=== PATIENT | male | born 1960 | race Caucasian/White ===

== ENCOUNTER 2019-07-19 14:24 | Outpatient (RCR) | payer MEDICAID, SELFPAY | END 2019-07-19 23:59 | disposition home or self-care (01) | LOC: ANHAUDIO 14:24 | PROVIDERS: PCP Internal Medicine; Visit Provider Internal Medicine | DX: Z46.1 Encounter for fitting and adjustment of hearing aid (principal) | CPT/HCPCS: 99199 ==

== ENCOUNTER 2020-01-23 07:08 | Outpatient (CLI) | payer OTHER, SELFPAY ==
[2020-01-23 07:22] LABS: Add Urine Microscopic? NO; Appearance Urine Clear (Clear); Bilirubin Urine Negative (Negative); Blood Urine Negative (Negative); Color Urine Yellow (Yellow); Glucose Urine UA Negative (Negative); Ketones Urine Negative (Negative); Leukocyte Esterase Ur Negative (Negative); Nitrate Urine Negative (Negative); Protein Urine Negative (Negative); Specific Grav Ur 1.015 (1.010-1.020); Urobilinogen Urine 0.2 mg/dL (0.2-1.0)
[2020-01-23 07:41] LABS: Hemoglobin A1C 5.5 % (<5.7)
[2020-01-23 08:23] LABS: Alanine Aminotransferase 34 U/L (16-63); Albumin Level 3.7 g/dL (3.4-5.0); Alkaline Phosphatase 38 U/L (46-116); Anion Gap 9.4 mmol/L (7-16); Aspartate Amino Transferase 22 U/L (15-37); Bilirubin,Total 0.9 mg/dL (0.00-1.00); Blood Urea Nitrogen 19 mg/dL (7-18); Calcium 8.8 mg/dL (8.5-10.1); Carbon Dioxide 32 mmol/L (21-32); Chloride 102 mmol/L (98-108); Cholesterol 214 mg/dL (0-200); Creatine Kinase 143 U/L (39-308); Estimated Glomerular Filt Rate > 60; Glucose 98 mg/dL (70-99); HDL Direct 76 mg/dL (40-60); LDL Cholesterol Calculated 115 mg/dL (<130); Osmolality Calculated 290 mOsm/kg (285-295); Potassium 4.4 mmol/L (3.5-5.1); Prostate Specific Antigen 1.1 ng/mL (< OR = 4.0); Sodium 139 mmol/L (136-145); Total Protein 6.7 g/dL (6.4-8.2); Triglycerides 114 mg/dL (0-150)
== END 2020-01-23 07:09 | disposition home or self-care (01) ==
PROVIDERS: PCP Internal Medicine; Visit Provider Internal Medicine
DX: R73.01 Impaired fasting glucose (principal); E78.2 Mixed hyperlipidemia; Z12.5 Encounter for screening for malignant neoplasm of prostate
CPT/HCPCS: 36415; 80053; 80061; 81003; 82550; 83036; 84153; G0103

== ENCOUNTER 2020-05-06 15:32 | Outpatient (CLI) | payer OTHER, SELFPAY ==
[2020-05-06 15:53] LABS: Basophils Absolute Auto 0.07 K/mm3 (0.00-0.10); Basophils Percent Auto 0.7 % (0.0-1.0); Eosinophils Absolute Auto 0.35 K/mm3 (0.02-0.50); Eosinophils Percent Auto 3.5 % (1.0-6.0); Hematocrit 46.3 % (40.0-54.0); Hemoglobin 15.5 g/dL (14.0-18.0); Immature Granulocyte Absolute 0.07 K/mm3 (0.00-0.00); Immature Granulocyte Percent A 0.7 % (0.0-0.0); Immature Reticulocyte Fraction 8.7 % (2.0-16.52); Lymphocytes Absolute Auto 3.24 K/mm3 (1.10-4.50); Lymphocytes Percent Auto 32.2 % (18.0-42.0); Mean Corpuscular HGB Conc 33.5 g/dL (32.0-36.0); Mean Corpuscular Volume 92.6 fL (78.0-102.0); Mean Platelet Volume 9.8 fl (8.7-11.0); Monocytes Absolute Auto 0.75 K/mm3 (0.10-0.90); Monocytes Percent Auto 7.5 % (2.0-11.0); Neutrophils Absolute Auto 5.6 K/mm3 (1.7-7.2); Neutrophils Percent Auto 55.4 % (50.0-70.0); Platelet Count Result 193 K/mm3 (150-420); Red Cell Distribution Width 12.3 % (11.6-14.4); Reticulocyte Hemoglobin Conten 36.9 pg (28.0-35.0); Reticulocyte Percent 1.89 % (0.50-1.50); Reticulocytes Absolute 0.09 M/mm3 (0.02-0.1); White Blood Count 10.1 K/mm3 (4.8-10.8)
[2020-05-06 17:08] LABS: Alanine Aminotransferase 42 U/L (16-63); Albumin Level 4.2 g/dL (3.4-5.0); Alkaline Phosphatase 47 U/L (46-116); Anion Gap 7 mmol/L (8-16); Aspartate Amino Transferase 21 U/L (15-37); Bilirubin,Total 1.1 mg/dL (0.00-1.00); Blood Urea Nitrogen 18 mg/dL (7-18); Calcium 8.8 mg/dL (8.5-10.1); Carbon Dioxide 27 mmol/L (21-32); Chloride 104 mmol/L (98-108); Estimated Glomerular Filt Rate > 60; Ferritin 167 ng/mL (26-388); Glucose 101 mg/dL (70-99); Iron 117 ug/dL (65-175); Osmolality Calculated 287 mOsm/kg (285-295); Percent Iron Saturation 41 % (12-57); Potassium 3.8 mmol/L (3.5-5.1); Sodium 138 mmol/L (136-145); Total Protein 7.4 g/dL (6.4-8.2)
== END 2020-05-06 15:33 | disposition home or self-care (01) ==
LOC: CHSLAB 15:34
PROVIDERS: PCP Internal Medicine; Visit Provider Internal Medicine
DX: R19.7 Diarrhea, unspecified (principal); K92.1 Melena
CPT/HCPCS: 36415; 80053; 82728; 83540; 83550; 85025; 85046

== ENCOUNTER 2020-05-07 15:33 | Outpatient (CLI) | payer OTHER, SELFPAY ==
[2020-05-10 12:33] LABS: Gliadin AB, IgG 5 Units (<20); Reticulin IgA Negative (Negative); TTG IGA AB 1 U/mL (<4)
[2020-05-12 07:23] LABS: ANCA Screen Negative (Negative); Myeloperoxidase Ab <1.0 AI (<1.0); Proteinase-3 Ab <1.0 AI (<1.0); S cerevisiae Ab (IgA) 33.5 U (<=20.0); S cerevisiae Ab (IgG) 17.5 U (<=20.0)
== END 2020-05-07 15:34 | disposition home or self-care (01) ==
LOC: CHSLAB 15:34
PROVIDERS: PCP Internal Medicine; Visit Provider Internal Medicine
DX: R19.7 Diarrhea, unspecified (principal); K92.1 Melena
CPT/HCPCS: 36415; 83516; 86021; 86255; 86671; 87045; 87046; 87177; 87209; 87269; 87337; 87427

== ENCOUNTER 2020-05-16 07:58 | Outpatient (CLI) | payer OTHER, SELFPAY ==
--- NOTE | ~2020-05-16 | US_ITS ---
EXAMINATION: US right upper quadrant DATE: 05/16/2020 08:19 INDICATION: Nausea. Bloating. TECHNIQUE: Multiple grayscale and Doppler ultrasound images of the abdomen were obtained. COMPARISON: CT abdomen and pelvis 06/02/2012 FINDINGS: The visualized portions of the head and body of the pancreas are normal. The liver is chung l without focal lesion. There is normal flow in main portal vein. The gallbladder is normal in size. No gallstones or gallbladder wall thickening. There was no sonographic Crenshaw sign. The common duct i s normal and measures 4 mm. IMPRESSION: 1. Normal right upper quadrant ultrasound. Reviewed, dictated and finalized at location B.
== END 2020-05-16 07:59 | disposition home or self-care (01) ==
LOC: CHSIMG 07:59
PROVIDERS: PCP Internal Medicine; Visit Provider Internal Medicine
DX: R19.7 Diarrhea, unspecified (principal); R14.0 Abdominal distension (gaseous); R11.0 Nausea
CPT/HCPCS: 76705

== ENCOUNTER 2020-06-10 01:00 | Outpatient (CLI) | payer OTHER, SELFPAY ==
[2020-06-10 20:51] LABS: SARS-CoV-2 RNA PCR Negative
== END 2020-06-10 01:01 | disposition home or self-care (01) ==
LOC: ANHCOVIDDT 01:01
PROVIDERS: PCP Internal Medicine; Visit Provider Surgery
DX: Z01.812 Encounter for preprocedural laboratory examination (principal); Z20.828 Contact with and (suspected) exposure to other viral communicable diseases
CPT/HCPCS: 87635; C9803; U0003

== ENCOUNTER 2020-06-12 01:06 | Day surgery (SDC) | payer OTHER, SELFPAY ==
[2020-06-05 12:56] VITALS: BMI 27.6
--- NOTE | 2020-06-11 12:20 | WPDANESEPPF ---
Anes - Initial Pre Proc Eval Procedure: Operation Date: 06/12/20 07:30 Proposed Procedures p Colonoscopy - Carl Estrada DO Date/Time: 06/11/20 12:20 Surgeon: Carl Estrada DO Pre Op Diagnosis: Abdominal Pain Patient Data Age: 59 Gender: M Height: 1.7 m Weight: 80 kg Allergies Allergy/AdvReac Type Severity Reaction Status Date / Time Penicillins Allergy Unknown Rash Verified 06/12/20 06:16 Home Medications Medication Instructions Recorded Confirmed Type albuterol sulfate [ProAir HFA] 1 inh INHALATION Q4-6H PRN 06/05/20 06/05/20 History montelukast 10 mg PO DAILY 06/05/20 06/05/20 History pantoprazole 40 mg PO DAILY 06/05/20 06/05/20 History pravastatin 40 mg PO DAILY 06/05/20 06/05/20 History Patient hx anesthesia problems: none Family hx anesthesia problems: none PMFSH Past Medical History Medical History (Updated 06/11/20 @ 12:21 by Antonio Chadwick MD) Asthma Chronic GERD Hypercholesterolemia Overweight (BMI 25.0-29.9) Family History Family History (Updated 11/05/16 @ 09:40 by DOCTOR UNKNOWN) Father Family history of malignant neoplasm Other Family history of alcoholism Family history of arthritis Hypertension Social History Social History Smoking packs per day: 2 Smoking cigarettes per day: 40.0 Years smoked: 32 Smoking pack-years: 64.00 Smoking status: Former smoker Tobacco type: cigarettes Smoking end date: 08/08/06 Alcohol intake: current Substance use: never Substance use type: does not use Living arrangements: with family Spiritual care concerns: No Anes - Eval Final PreProcedure Day of Procedure 06/11/20 12:20 Patient weight: overweight Heart: regular rate and rhythm Lungs: clear to auscultation and normal air movement Airway: Mallampati scale class II Neurological: alert and oriented Last oral intake: >/= 8 hours ASA classification: II Emergent: no Anesthetic plan: proceed Anesthesia type and monitoring: general GIVS Informed Consent: The patient's anesthetic plan and its attendant risks and benefits were discussed with the patient/family/POA. Questions were solicited and answers provided to the satisfaction of the patient/family/POA.
[2020-06-12 06:17] VITALS: BP 131/78; PULSE 74; RESP 18; TEMP 36; O2SAT 95; BMI 26.7
[2020-06-12] MEDS: LACTATED RINGERS 1,000 ML 150 ML IV CONT (06:26)
--- NOTE | 2020-06-12 07:30 | PM.IMHP ---
H&P: HPI History of Present Illness Date/Time: 06/12/20 07:30 Chief complaint: Abdominal Pain Narrative: Vidal Donovan is a 59 year old male who presents for colonoscopy. He was having some abdominal pain and diarrhea, but he figured that that was somewhat diet related. He also had some occasional rectal bleeding. Last colonoscopy was 8 years ago and was normal. Denies fam hx colon cancer. Review of Systems Review of Systems: All systems reviewed & are unremarkable except as noted in HPI and below Eyes: Eyes: Denies change in vision ENT: Denies hearing loss, Denies neck pain and Denies sore throat Cardiovascular: Cardiovascular: Denies chest pain and Denies dyspnea Respiratory: Respiratory: Denies cough, Denies dyspnea and Denies wheezing Genitourinary: Genitourinary: Denies hematuria and Denies dysuria Musculoskeletal: Musculoskeletal: Denies arthralgias, Denies joint swelling and Denies neck pain Allergic/Immunologic: Allergic/Immunologic: Denies wheezing PMFSH Past Medical History Medical History Asthma Chronic GERD Hypercholesterolemia Overweight (BMI 25.0-29.9) Family History Family History Father Family history of malignant neoplasm Other Family history of alcoholism Family history of arthritis Hypertension Social History Social History Smoking packs per day: 2 Smoking cigarettes per day: 40.0 Years smoked: 32 Smoking pack-years: 64.00 Smoking status: Former smoker Tobacco type: cigarettes Smoking end date: 08/08/06 Alcohol intake: current Substance use: never Substance use type: does not use Living arrangements: with family Spiritual care concerns: No Meds Home Medications and Allergies Home Medications Medication Instructions Recorded Confirmed Type albuterol sulfate [ProAir HFA] 1 inh INHALATION Q4-6H PRN 06/05/20 06/05/20 History montelukast 10 mg PO DAILY 06/05/20 06/05/20 History pantoprazole 40 mg PO DAILY 06/05/20 06/05/20 History pravastatin 40 mg PO DAILY 06/05/20 06/05/20 History Allergies Allergy/AdvReac Type Severity Reaction Status Date / Time Penicillins Allergy Unknown Rash Verified 06/12/20 06:16 Vital Signs Vital Signs - 24 hr 06/12/20 06:17 Temperature 36.0 C L Pulse Rate 74 Respiratory Rate 18 Blood Pressure 131/78 Pulse Oximetry 95 Exam Const: General: alert; No acute distress Orientation/consciousness: patient oriented x3 Limitations: no limitations HENMT: Head: normocephalic and atraumatic Ears: hearing grossly normal bilaterally General nose exam: Normal external nose present and Normal nares present Mouth: Yes Normal oral and palatal mucosa present and Yes moist mucous membranes Eyes: General: appearance normal, both eyes and all related structures Conjunctivae: conjunctivae normal Sclera: sclerae normal Pupils: Equal, round and reactive pupils present EOM: EOMs intact bilaterally Neck: Neck: normal visual inspection, full ROM, no lymphadenopathy, supple and no JVD Lymphatic: no lymphadenopathy noted Chest: Chest palpation & inspection: normal inspection of the chest Resp: Effort & Inspection: normal respiratory effort and able to speak in complete sentences Auscultation: clear to auscultation bilaterally Percussion: percussion normal Cardio: Jugular venous distension: no JVD Rate: regular rate Rhythm: regular rhythm Heart sounds: S1 normal heart sound present and S2 normal heart sound present Peripheral pulses: Peripheral pulses 2+ throughout GI: Inspection: normal to inspection GI Palp: No abdominal tenderness, Yes Soft to palpation, No Guarding due to palpation present (GI), No Hernia present and No Rebound tenderness present Percussion: Yes normal to percussion Auscultation: normal bowel sounds : General: Yes no CVA ten
[2020-06-12 07:58] VITALS: BP 117/79; PULSE 75; RESP 18; O2SAT 97
[2020-06-12 08:08] VITALS: BP 126/83; PULSE 69; RESP 18; O2SAT 97
[2020-06-12 08:18] VITALS: BP 128/73; PULSE 69; RESP 18; O2SAT 97
== END 2020-06-12 08:35 | disposition home or self-care (01) ==
PROVIDERS: PCP Internal Medicine; Visit Provider Surgery
PROC: 0DJD8ZZ Inspection of Lower Intestinal Tract, Via Natural or Artificial Opening Endoscopic (ICD-10-PCS; CPT 45378; principal; 2020-06-12 07:30)
DX: R10.84 Generalized abdominal pain (principal); K62.5 Hemorrhage of anus and rectum; K64.8 Other hemorrhoids; J45.909 Unspecified asthma, uncomplicated; K21.9 Gastro-esophageal reflux disease without esophagitis; E78.00 Pure hypercholesterolemia, unspecified; Z87.891 Personal history of nicotine dependence
CPT/HCPCS: 45378; J2704; J7120

== ENCOUNTER 2020-07-09 13:47 | Outpatient (CLI) | payer OTHER, SELFPAY ==
[2020-07-09 14:43] LABS: SARS-CoV-2 Ag Positive (Negative)
== END 2020-07-09 13:48 | disposition home or self-care (01) ==
LOC: CHSLAB 13:50
PROVIDERS: PCP Internal Medicine; Visit Provider Internal Medicine
DX: U07.1 COVID-19 (principal)
CPT/HCPCS: 87426

== ENCOUNTER 2020-07-16 13:56 | Outpatient (CLI) | payer OTHER, SELFPAY ==
--- NOTE | ~2020-07-16 | XR_ITS ---
EXAMINATION: XR chest 2V DATE: 07/16/2020 14:22 INDICATION: Cough. Chest congestion. TECHNIQUE: Frontal and lateral views of the chest were obtained. COMPARISON: Chest 2 views 07/02/2016 FINDINGS: The chest demonstrates clear lungs without pneumonia, pleural effusion, or pneumothorax. Th e heart size is normal. IMPRESSION: 1. No acute cardiopulmonary disease. Reviewed, dictated and finalized at location B. K OFFBEARER
[2020-07-16 14:56] LABS: Basophils Absolute Auto 0.04 K/mm3 (0.00-0.10); Basophils Percent Auto 0.5 % (0.0-1.0); Eosinophils Absolute Auto 0.33 K/mm3 (0.02-0.50); Eosinophils Percent Auto 3.8 % (1.0-6.0); Hematocrit 46.7 % (40.0-54.0); Hemoglobin 15.6 g/dL (14.0-18.0); Immature Granulocyte Absolute 0.05 K/mm3 (0.00-0.00); Immature Granulocyte Percent A 0.6 % (0.0-0.0); Lymphocytes Absolute Auto 3.13 K/mm3 (1.10-4.50); Lymphocytes Percent Auto 36.1 % (18.0-42.0); Mean Corpuscular HGB Conc 33.4 g/dL (32.0-36.0); Mean Corpuscular Hemoglobin 30.6 pg (27.0-31.0); Mean Corpuscular Volume 91.7 fL (78.0-102.0); Mean Platelet Volume 10.5 fl (8.7-11.0); Monocytes Absolute Auto 0.53 K/mm3 (0.10-0.90); Monocytes Percent Auto 6.1 % (2.0-11.0); Neutrophils Absolute Auto 4.6 K/mm3 (1.7-7.2); Neutrophils Percent Auto 52.9 % (50.0-70.0); Platelet Count Result 178 K/mm3 (150-420); Red Blood Count 5.09 M/mm3 (4.70-6.10); Red Cell Distribution Width 12.3 % (11.6-14.4); White Blood Count 8.7 K/mm3 (4.8-10.8)
== END 2020-07-16 13:57 | disposition home or self-care (01) ==
LOC: CHSLAB 14:00
PROVIDERS: PCP Internal Medicine; Visit Provider Internal Medicine
DX: R05 Cough (principal); R09.89 Other specified symptoms and signs involving the circulatory and respiratory systems
CPT/HCPCS: 36415; 71046; 85025

== ENCOUNTER 2020-08-22 13:03 | Outpatient (RCR) | payer OTHER, SELFPAY ==
--- NOTE | 2020-08-22 14:10 | PTOPEVAL ---
Thank you for referring Vidal Donovan to [facility].? The patient is scheduled to be seen for therapy? ____x/week for ___ weeks. Please review, sign, date and return this plan of care CHANDRIKA. I agree with and certify that the following plan of care is medically necessary. Referring Physician Date Admitting Provider: Attending Provider: Charlie Gloria MD Referring Provider: *PT Outpatient Evaluation Start: 08/22/20 13:03 Freq: Status: Active Protocol: Document 08/22/20 13:05 [facility] (Rec: 08/22/20 14:04 [facility] [id number]) Therapy Assessment Status Assessment Status Assessment Status Evaluation Outpatient Past Medical History Neurological History Hx Neurological Disorders No Significant History Cardiovascular History Hx Hypercholesterolemia Yes Respiratory History Hx Asthma Yes Gastrointestinal History Hx Appendectomy Yes Hx Gastroesophageal Reflux Disease Yes Hx Hernia Yes Genitourinary History Hx Genitourinary Disorders No Significant History Musculoskeletal History Hx Orthopedic Surgery Yes: right knee and right shoulder- no metal Hematological History Hx Hematological Disorders No Significant History Endocrine History Hx Endocrine Disorders No Significant History HEENT History Hx HEENT Disorders No Significant History Integumentary History Hx Skin Disorders No Significant History Reproductive History Hx Reproductive Disorders No Significant History Psychosocial History Hx Psychiatric Disorders No Significant History Evaluation Information Problem Diagnosis s/p L PTKA Onset 08/19/20 Additional Evaluation Detail LEFS = 77% Subjective Information patient reports he underwent Query Text:As Reported By Patient/ partial total knee replacement Family on 08/19/20. however, patients order refers him to therapy for total knee replacement. patient reports he is unsure which component of knee reaplacement he had replaced. he reports the joint was arthritic and painful prior to surgery. he reports he was in the hospital 1 night . he reports no home health. he reports he has been doing bed level exercises for his L knee since her has been home. Prior Level of Function Comments Additional Prior Level of Function prior to surgery, patient Comments reports
== END 2020-09-30 10:34 | disposition home or self-care (01) ==
LOC: CHSPT 13:03
PROVIDERS: PCP Internal Medicine; Visit Provider Orthopaedic Surgery
DX: Z96.652 Presence of left artificial knee joint (principal)
CPT/HCPCS: 97016; 97110; 97161; 97530

== ENCOUNTER 2020-12-26 11:16 | Outpatient (CLI) | payer OTHER, SELFPAY ==
[2020-12-26 11:24] LABS: Basophils Absolute Auto 0.09 K/mm3 (0.00-0.10); Basophils Percent Auto 0.9 % (0.0-1.0); Eosinophils Percent Auto 4.1 % (1.0-6.0); Hematocrit 46.8 % (40.0-54.0); Hemoglobin 15.8 g/dL (14.0-18.0); Immature Granulocyte Absolute 0.03 K/mm3 (0.00-0.00); Immature Granulocyte Percent A 0.3 % (0.0-0.0); Lymphocytes Absolute Auto 3.51 K/mm3 (1.10-4.50); Lymphocytes Percent Auto 36.1 % (18.0-42.0); Mean Corpuscular HGB Conc 33.8 g/dL (32.0-36.0); Mean Corpuscular Hemoglobin 30.6 pg (27.0-31.0); Mean Corpuscular Volume 90.5 fL (78.0-102.0); Mean Platelet Volume 9.8 fl (8.7-11.0); Monocytes Absolute Auto 0.79 K/mm3 (0.10-0.90); Monocytes Percent Auto 8.1 % (2.0-11.0); Neutrophils Absolute Auto 4.9 K/mm3 (1.7-7.2); Neutrophils Percent Auto 50.5 % (50.0-70.0); Platelet Count Result 200 K/mm3 (150-420); Red Blood Count 5.17 M/mm3 (4.70-6.10); Red Cell Distribution Width 12.5 % (11.6-14.4); White Blood Count 9.7 K/mm3 (4.8-10.8)
[2020-12-26 12:17] LABS: Anion Gap 9 mmol/L (8-16); Aspartate Amino Transferase 19 U/L (15-37); Blood Urea Nitrogen 28 mg/dL (7-18); Calcium 9.5 mg/dL (8.5-10.1); Carbon Dioxide 27 mmol/L (21-32); Chloride 103 mmol/L (98-108); Estimated Glomerular Filt Rate > 60; Glucose 101 mg/dL (70-99); Osmolality Calculated 293 mOsm/kg (285-295); Potassium 4.4 mmol/L (3.5-5.1); Sodium 139 mmol/L (136-145)
== END 2020-12-26 11:17 | disposition home or self-care (01) ==
LOC: CHSLAB 11:17
PROVIDERS: PCP Internal Medicine; Visit Provider Orthopaedic Surgery
DX: Z79.1 Long term (current) use of non-steroidal anti-inflammatories (NSAID) (principal)
CPT/HCPCS: 36415; 80048; 84450; 85025

== ENCOUNTER 2020-12-30 13:58 | Outpatient (RCR) | payer OTHER, SELFPAY | END 2020-12-30 23:59 | disposition home or self-care (01) | LOC: ANHAUDIO 13:58 | PROVIDERS: PCP Internal Medicine; Visit Provider Internal Medicine | DX: Z46.1 Encounter for fitting and adjustment of hearing aid (principal) | CPT/HCPCS: 99199; V5014 ==

== ENCOUNTER 2021-07-10 10:51 | Outpatient (RCR) | payer OTHER, SELFPAY ==
--- NOTE | 2021-07-10 12:05 | PTOPEVAL ---
Thank you for referring Vidal Donovan to [facility].? The patient is scheduled to be seen for therapy? ____x/week for ___ weeks. Please review, sign, date and return this plan of care CHANDRIKA. I agree with and certify that the following plan of care is medically necessary. Referring Physician Date Admitting Provider: Attending Provider: Charlie Gloria MD Referring Provider: *PT Outpatient Evaluation Start: 07/10/21 11:13 Freq: Status: Active Protocol: Document 07/10/21 11:10 [facility] (Rec: 07/10/21 12:05 [facility] [id number]) Therapy Assessment Status Assessment Status Assessment Status Evaluation Outpatient Past Medical History Neurological History Hx Neurological Disorders No Significant History Cardiovascular History Hx Hypercholesterolemia Yes Respiratory History Hx Asthma Yes Gastrointestinal History Hx Appendectomy Yes Hx Gastroesophageal Reflux Disease Yes Hx Hernia Yes Genitourinary History Hx Genitourinary Disorders No Significant History Musculoskeletal History Hx Orthopedic Surgery Yes: right knee and right shoulder- no metal Hematological History Hx Hematological Disorders No Significant History Endocrine History Hx Endocrine Disorders No Significant History HEENT History Hx HEENT Disorders No Significant History Integumentary History Hx Skin Disorders No Significant History Reproductive History Hx Reproductive Disorders No Significant History Psychosocial History Hx Psychiatric Disorders No Significant History Evaluation Information Problem Diagnosis R medial partial knee replacement Onset 07/07/21 Additional Evaluation Detail LEFS = 68% functionally declined Subjective Information patient reports he has R Query Text:As Reported By Patient/ partial knee reaplcement of Family the medial compartment on . he reports he has having pain still and discomfort with trying to sleep the past few days. he reports prior to surgery he was having a lot of difficutly with walking. he reports his hip on the opposite side was beginning to bother him as well. he has had the same surgery on the L knee and done well with return to pain free mobility on the L LE. Prior Level of Function Comments
--- NOTE | 2021-08-04 17:33 | PTOPEVAL ---
Thank you for referring Vidal Donovan to [facility].? The patient is scheduled to be seen for therapy? ____x/week for ___ weeks. Please review, sign, date and return this plan of care CHANDRIKA. I agree with and certify that the following plan of care is medically necessary. Referring Physician Date Admitting Provider: Attending Provider: Charlie Gloria MD Referring Provider: *PT Outpatient Evaluation Start: 07/10/21 11:13 Freq: Status: Active Protocol: Document 08/04/21 09:00 [facility] (Rec: 08/04/21 17:32 [facility] [id number]) Therapy Assessment Status Assessment Status Assessment Status Progress Outpatient Past Medical History Neurological History Hx Neurological Disorders No Significant History Cardiovascular History Hx Hypercholesterolemia Yes Respiratory History Hx Asthma Yes Gastrointestinal History Hx Appendectomy Yes Hx Gastroesophageal Reflux Disease Yes Hx Hernia Yes Genitourinary History Hx Genitourinary Disorders No Significant History Musculoskeletal History Hx Orthopedic Surgery Yes: right knee and right shoulder- no metal Hematological History Hx Hematological Disorders No Significant History Endocrine History Hx Endocrine Disorders No Significant History HEENT History Hx HEENT Disorders No Significant History Integumentary History Hx Skin Disorders No Significant History Reproductive History Hx Reproductive Disorders No Significant History Psychosocial History Hx Psychiatric Disorders No Significant History Evaluation Information Problem Diagnosis R medial partial knee replacement Onset 07/07/21 Subjective Information patient reports he feels good Query Text:As Reported By Patient/ this date. he reports Family minimal pain in the R knee today. he reports the MD was happy with his progress as of his follow up visit yesterday. Pain Assessment Timing of Pain Assessment Timing of Pain Assessment Assessment Pain Scale Pain Scale Used Numeric (1 - 10) Self Report Pain Assessment Right Knee(s) Reported Pain Level 2 Pain Score Pain Score 2: Self Report Interventions Used Interventions Used By Clinicians Activity or ADL's,Compression Pump,Elevation,Exercise Lower Extremity Range of Motion General Lower Extremity Range of Motion Gross Lower Extremity Range of Motion 0-13 degrees arom R knee Comments mobility Gait Assessment 6 Minute Walk Total Distance (feet) 1,200 6 Minute Walk Gait Speed Score (feet/ 3.33 second)
--- NOTE | 2021-08-18 10:00 | PTOPEVAL ---
Thank you for referring Vidal Donovan to [facility].? The patient is scheduled to be seen for therapy? ____x/week for ___ weeks. Please review, sign, date and return this plan of care CHANDRIKA. I agree with and certify that the following plan of care is medically necessary. Referring Physician Date Admitting Provider: Attending Provider: Charlie Gloria MD Referring Provider: *PT Outpatient Evaluation Start: 07/10/21 11:13 Freq: Status: Active Protocol: Document 08/18/21 09:00 [facility] (Rec: 08/18/21 09:58 [facility] [id number]) Outpatient Past Medical History Neurological History Hx Neurological Disorders No Significant History Cardiovascular History Hx Hypercholesterolemia Yes Respiratory History Hx Asthma Yes Gastrointestinal History Hx Appendectomy Yes Hx Gastroesophageal Reflux Disease Yes Hx Hernia Yes Genitourinary History Hx Genitourinary Disorders No Significant History Musculoskeletal History Hx Orthopedic Surgery Yes: right knee and right shoulder- no metal Hematological History Hx Hematological Disorders No Significant History Endocrine History Hx Endocrine Disorders No Significant History HEENT History Hx HEENT Disorders No Significant History Integumentary History Hx Skin Disorders No Significant History Reproductive History Hx Reproductive Disorders No Significant History Psychosocial History Hx Psychiatric Disorders No Significant History Evaluation Information Problem Diagnosis R medial partial knee replacement Onset 07/07/21 Additional Evaluation Detail LEFS = 26% functionally declined. Subjective Information patient reports he has no pain Query Text:As Reported By Patient/ this date. he reports he sees Family the MD today to follow up about a small iritation on the incision. 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 he reports he did push it hard over the weekend walking on a treadmill and the knee felt great. Pain Assessment Timing of Pain Assessment Timing of Pain Assessment Assessment Self Report Self Report Pain Level 0 Pain Score Pain Score 0: Self Report Lower Extremity Range of Motion General Lower Extremity Range of Motion Gross Lower Extremity Range of Motion 0-130 degrees arom R knee Comments mobility Lower Extremity Muscle Strength Testing General Lower Extremity Strength Gross Lower Extremity Strength 5/5 R hip
== END 2021-08-18 14:09 | disposition home or self-care (01) ==
LOC: CHSPT 10:51
PROVIDERS: Visit Provider Orthopaedic Surgery
DX: Z96.651 Presence of right artificial knee joint (principal)
CPT/HCPCS: 97016; 97110; 97161; 97530

== ENCOUNTER 2021-08-17 08:55 | Outpatient (CLI) | payer OTHER, SELFPAY | END 2021-08-17 08:56 | disposition home or self-care (01) | LOC: ANHAUDIO 08:57 | PROVIDERS: PCP Internal Medicine; Visit Provider Otolaryngology | DX: H69.83 Other specified disorders of Eustachian tube, bilateral (principal); H90.3 Sensorineural hearing loss, bilateral | CPT/HCPCS: 92557; 92567 ==

== ENCOUNTER 2021-09-16 11:47 | Outpatient (CLI) | payer OTHER, SELFPAY ==
--- NOTE | ~2021-09-16 | XR_ITS ---
XR lumbar spine 2-3V DATE: 09/16/2021 12:08 INDICATION: Low back pain, left sciatica TECHNIQUE: AP, lateral, coned lateral lumbosacral views COMPARISON: 05/22/2012 lumbar spine examination is not available from the archive at this time FINDINGS: There is mild lumbar levoscoliosis. Included lower thoracic and lumbar pedicles are intact. No fracture or bone destruction is evident. There is degenerative spurring in the lower thoracic spine. There is moderate degenerative disc disease at L1-2. There is severe degenerative disc disease at L2-3 with virtual obliteration of interspace and promine nt apposing eburnation and some degenerative spurring. There is minimal retrolisthesis at L3-4 and L4-5. There is severe degenerative disease at L5-S1. There are bilateral L5 pars interarticularis defects with grade 2 anterolisthesis at L5-S1. The sacroiliac joints are intact. IMPRESSION: Bilateral L5 pars interarticularis defects with grade 2 anterolisthesis of L5-S1 Severe degenerative disc disease at L2-3 and L5-S1 Minimal retrolisthesis at L3-4 and L4-5 Reviewed, dictated and finalized at location A. ALT PAVING FOREMAN IMPRESSION: Bilateral L5 pars interarticularis defects with grade 2 anterolisth esis of L5-S1 Severe degenerative disc disease at L2-3 and L5-S1 Minimal retrolisthesis at L3-4 and L4-5
--- NOTE | ~2021-09-16 | XR_ITS ---
XR sacroiliac joints min 3V DATE: 09/16/2021 12:08 INDICATION: Low back pain, left sciatica TECHNIQUE: AP and bilateral oblique views COMPARISON: None FINDINGS: Normal alignment at the pubic symphysis and both sacroiliac joints. No fracture, dislocatio n, erosive change, ankylosis or degenerative change of the sacroiliac joints is evident. IMPRESSION: Negative sacroiliac joints Reviewed, dictated and finalized at Location A. Reviewed, dictated and finalized at location A. OGRAPHIC PHOTOGRAPHER IMPRESSION: Negative sacroiliac joints
== END 2021-09-16 11:48 | disposition home or self-care (01) ==
LOC: CHSIMG 11:48
PROVIDERS: PCP Internal Medicine; Visit Provider Internal Medicine
DX: M54.50 Low back pain, unspecified (principal)
CPT/HCPCS: 72100; 72202

== ENCOUNTER 2021-09-19 07:19 | Outpatient (CLI) | payer OTHER, SELFPAY ==
--- NOTE | ~2021-09-19 | MR_ITS ---
EXAMINATION: MR lumbar spine wo con DATE: 09/19/2021 08:21 INDICATION: Low back pain. TECHNIQUE: Magnetic resonance imaging (MRI) of the lumbar spine was performed without intravenous con trast. Sequences included sagittal T2-weighted FSE, sagittal T2-weighted FS FSE, sagittal T1-weighted FSE, and axial T2-weighted FSE. COMPARISON: Lumbar spine MRI 05/24/2012 FINDINGS: There is 8 degrees levocurvature of lumbar spine. There are chronic bilateral L5 pars defec ts. There is 4 mm retrolisthesis of L2 on L3 and 5 mm anterolisthesis of L5 on S1. There is less than 1/5 chronic height loss of L5 vertebral body posteriorly. There is mildly decreased disc height at L 1-L2, severely decreased disc height at L2-L3, mildly decreased disc height at L4-L5, and severely de creased disc height at L5-S1 with endplate remodeling. The distal spinal cord signal intensity is nor mal. The conus medullaris is at L1. The following disc levels are specifically discussed: L1-L2: The disc is bulging and has an annular fissure. There is mild bilateral facet joint osteoarthr itis. There is mild left neural foraminal stenosis. There is mild central canal stenosis. L2-L3: The disc is bulging and has an annular fissure. There is moderate right and mild left facet jamal int osteoarthritis. There is moderate right and mild left neural foraminal stenosis. There is mild ce ntral canal stenosis. L3-L4: The disc is bulging and has an annular fissure. There is mild bilateral facet joint osteoarthr itis. There is mild bilateral neural foraminal stenosis. There is no central canal stenosis. L4-L5: The disc is bulging and has an annular fissure. There is severe bilateral facet joint osteoart hritis. There is moderate bilateral neural foraminal stenosis. There is mild central canal stenosis. L5-S1: The disc is bulging and has an annular fissure. There is severe bilateral facet joint osteoart hritis. There is moderate bilateral neural foraminal stenosis. There is mild central canal stenosis. IMPRESSION: 1. Severe lumbar spondylosis, worsened from 05/24/2012. 2. Chronic bilateral L5 pars defects with grade 1 anterolisthesis of L5 on S1. Reviewed, dictated and finalized at location E. YSIS OR RESEARCH SAFETY INSPECTOR
== END 2021-09-19 07:20 | disposition home or self-care (01) ==
LOC: CHSIMG 07:20
PROVIDERS: PCP Internal Medicine; Visit Provider Internal Medicine
DX: M54.50 Low back pain, unspecified (principal); M51.36 Other intervertebral disc degeneration, lumbar region
CPT/HCPCS: 72148

== ENCOUNTER 2021-09-29 14:08 | Outpatient (RCR) | payer OTHER, SELFPAY ==
--- NOTE | 2021-09-29 14:55 | PTOPEVAL ---
Thank you for referring Vidal Donovan to [facility].? The patient is scheduled to be seen for therapy? ____x/week for ___ weeks. Please review, sign, date and return this plan of care CHANDRIKA. I agree with and certify that the following plan of care is medically necessary. Referring Physician Date Admitting Provider: Attending Provider: Rk Swenson MD Referring Provider: *PT Outpatient Evaluation Start: 09/29/21 14:03 Freq: Status: Active Protocol: Document 09/29/21 14:04 [facility] (Rec: 09/29/21 14:53 [facility] [id number]) Therapy Assessment Status Assessment Status Assessment Status Evaluation Outpatient Past Medical History Neurological History Hx Neurological Disorders No Significant History Cardiovascular History Hx Hypercholesterolemia Yes Respiratory History Hx Asthma Yes Gastrointestinal History Hx Appendectomy Yes Hx Gastroesophageal Reflux Disease Yes Hx Hernia Yes Genitourinary History Hx Genitourinary Disorders No Significant History Musculoskeletal History Hx Orthopedic Surgery Yes: right knee and right shoulder- no metal Hematological History Hx Hematological Disorders No Significant History Endocrine History Hx Endocrine Disorders No Significant History HEENT History Hx HEENT Disorders No Significant History Integumentary History Hx Skin Disorders No Significant History Reproductive History Hx Reproductive Disorders No Significant History Psychosocial History Hx Psychiatric Disorders No Significant History Evaluation Information Problem Diagnosis DDD, L5/S1 radiculopathy Onset 09/24/21 Additional Evaluation Detail oswestry = 58% functionally declined Subjective Information patient reports he is having Query Text:As Reported By Patient/ pain in the lower back and Family down the L LE. he reports the L LE symptoms are along the side of the L LE past the knee into the foot. he reports he has had pain in the lower back for years. patient reports he has increased pain with sitting or standing still for more than 10 minutes. he reports he feel svery stiff when getting back up from sitting. he reports he is better when he is up and moving constantly. he reports he has had mri and xray of
--- NOTE | 2021-10-30 14:02 | PTOPEVAL ---
Thank you for referring Vidal Donovan to [facility].? The patient is scheduled to be seen for therapy? ____x/week for ___ weeks. Please review, sign, date and return this plan of care CHANDRIKA. I agree with and certify that the following plan of care is medically necessary. Referring Physician Date Admitting Provider: Attending Provider: Rk Swenson MD Referring Provider: *PT Outpatient Evaluation Start: 09/29/21 14:03 Freq: Status: Active Protocol: Document 10/30/21 13:00 [facility] (Rec: 10/30/21 14:02 [facility] [id number]) Outpatient Past Medical History Neurological History Hx Neurological Disorders No Significant History Cardiovascular History Hx Hypercholesterolemia Yes Respiratory History Hx Asthma Yes Gastrointestinal History Hx Appendectomy Yes Hx Gastroesophageal Reflux Disease Yes Hx Hernia Yes Genitourinary History Hx Genitourinary Disorders No Significant History Musculoskeletal History Hx Orthopedic Surgery Yes: right knee and right shoulder- no metal Hematological History Hx Hematological Disorders No Significant History Endocrine History Hx Endocrine Disorders No Significant History HEENT History Hx HEENT Disorders No Significant History Integumentary History Hx Skin Disorders No Significant History Reproductive History Hx Reproductive Disorders No Significant History Psychosocial History Hx Psychiatric Disorders No Significant History Evaluation Information Problem Diagnosis DDD, L5/S1 radiculopathy Onset 09/24/21 Additional Evaluation Detail LEFS = 24% functionally declined Subjective Information patient reports he is doing Query Text:As Reported By Patient/ better since beginning Family therapy. he reports he still has some pain and pain in the L buttock with prolonged sitting. however, he reports he is able to sit longer, stand longer, has less pain overall, and has no symptoms down the L LE. he reports he is compliant with his HEP at home. Pain Assessment Timing of Pain Assessment Timing of Pain Assessment Assessment Pain Scale Pain Scale Used Numeric (1 - 10) Self Report Pain Assessment Lower Back Reported Pain Level 2 Pain Score Pain Score 2: Self Report Interventions Used Interventions Used By Clinicians Activity or ADL's,Education, Exerc
== END 2021-10-30 14:17 | disposition home or self-care (01) ==
LOC: CHSPT 14:08
PROVIDERS: PCP Internal Medicine; Visit Provider Internal Medicine
DX: M19.90 Unspecified osteoarthritis, unspecified site (principal); M43.07 Spondylolysis, lumbosacral region
CPT/HCPCS: 97014; 97110; 97161; 97530; G0283

== ENCOUNTER 2021-10-16 09:54 | Outpatient (RCR) | payer OTHER, SELFPAY | END 2021-10-16 23:59 | disposition home or self-care (01) | LOC: ANHAUDIO 09:54 | PROVIDERS: PCP Internal Medicine; Visit Provider Internal Medicine | DX: Z46.1 Encounter for fitting and adjustment of hearing aid (principal) | CPT/HCPCS: V5160; V5261 ==

== ENCOUNTER 2021-12-15 07:00 | Outpatient (CLI) | payer OTHER, SELFPAY ==
[2021-12-15 07:12] LABS: Basophils Absolute Auto 0.06 K/mm3 (0.00-0.10); Basophils Percent Auto 0.6 % (0.0-1.0); Eosinophils Absolute Auto 0.56 K/mm3 (0.02-0.50); Eosinophils Percent Auto 5.4 % (1.0-6.0); Hematocrit 44.5 % (40.0-54.0); Hemoglobin 15.1 g/dL (14.0-18.0); Immature Granulocyte Absolute 0.08 K/mm3 (0.00-0.00); Immature Granulocyte Percent A 0.8 % (0.0-0.0); Lymphocytes Absolute Auto 3.09 K/mm3 (1.10-4.50); Lymphocytes Percent Auto 29.8 % (18.0-42.0); Mean Corpuscular HGB Conc 33.9 g/dL (32.0-36.0); Mean Corpuscular Hemoglobin 30.5 pg (27.0-31.0); Mean Corpuscular Volume 89.9 fL (78.0-102.0); Monocytes Absolute Auto 0.74 K/mm3 (0.10-0.90); Monocytes Percent Auto 7.1 % (2.0-11.0); Neutrophils Absolute Auto 5.9 K/mm3 (1.7-7.2); Neutrophils Percent Auto 56.3 % (50.0-70.0); Platelet Count Result 192 K/mm3 (150-420); Red Blood Count 4.95 M/mm3 (4.70-6.10); Red Cell Distribution Width 12.8 % (11.6-14.4); White Blood Count 10.4 K/mm3 (4.8-10.8)
[2021-12-15 07:13] LABS: Add Urine Microscopic? NO; Appearance Urine Clear (Clear); Bilirubin Urine Negative (Negative); Blood Urine Negative (Negative); Color Urine Light Yellow (Yellow); Glucose Urine UA Negative (Negative); Ketones Urine Negative (Negative); Leukocyte Esterase Ur Negative (Negative); Nitrate Urine Negative (Negative); Protein Urine Negative (Negative); Specific Grav Ur 1.015 (1.010-1.020); Urobilinogen Urine 0.2 mg/dL (0.2-1.0); pH Urine 7.5 (5.0-8.0)
[2021-12-15 07:39] LABS: Alanine Aminotransferase 27 U/L (16-63); Albumin Level 3.7 g/dL (3.4-5.0); Alkaline Phosphatase 56 U/L (46-116); Anion Gap 6 mmol/L (8-16); Aspartate Amino Transferase 16 U/L (15-37); Bilirubin,Total 0.6 mg/dL (0.00-1.00); Blood Urea Nitrogen 18 mg/dL (7-18); Calcium 8.7 mg/dL (8.5-10.1); Carbon Dioxide 27 mmol/L (21-32); Chloride 105 mmol/L (98-108); Cholesterol 219 mg/dL (0-200); Creatine Kinase 84 U/L (39-308); Estimated Glomerular Filt Rate > 60; Glucose 107 mg/dL (70-99); HDL Direct 52 mg/dL (40-60); LDL Cholesterol Calculated 140 mg/dL (<130); Osmolality Calculated 287 mOsm/kg (285-295); Potassium 4.1 mmol/L (3.5-5.1); Prostate Specific Antigen 0.9 ng/mL (< OR = 4.0); Sodium 138 mmol/L (136-145); Total Protein 7.1 g/dL (6.4-8.2); Triglycerides 136 mg/dL (0-150)
[2021-12-15 07:42] LABS: Hemoglobin A1C 5.4 % (<5.7)
== END 2021-12-15 07:01 | disposition home or self-care (01) ==
LOC: CHSLAB 07:02
PROVIDERS: PCP Internal Medicine; Visit Provider Internal Medicine
DX: R73.01 Impaired fasting glucose (principal); K92.1 Melena; Z12.5 Encounter for screening for malignant neoplasm of prostate; E78.2 Mixed hyperlipidemia; I10 Essential (primary) hypertension
CPT/HCPCS: 36415; 80053; 80061; 81003; 82550; 83036; 84153; 85025; G0103

== ENCOUNTER 2022-01-11 01:06 | Day surgery (SDC) | payer OTHER, SELFPAY ==
[2021-12-31 12:14] VITALS: BMI 28.6
[2022-01-11 12:30] VITALS: BP 132/89; PULSE 72; RESP 18; O2SAT 99
--- NOTE | 2022-01-11 12:30 | PM.HPGS ---
History of Present Illness History of Present Illness Consent: Risks, benefits, and alternatives have been discussed and questions answered. Patient agrees to proceed with procedure. Chief complaint: hemorrhoids Narrative: Vidal Donovan is a 61 year old male with symptomatic hemorrhoids, last colonoscopy with same finding. Only used topical ointment Review of Systems Constitutional: Constitutional: Denies headache(s) and Denies weakness Eyes: Eyes: Denies blurry vision ENT: Reports Normal hearing present, Denies headache(s) and Denies neck pain Cardiovascular: Cardiovascular: Denies chest pain and Denies dyspnea Respiratory: Respiratory: Denies dyspnea Gastrointestinal: Gastrointestinal: Reports no additional gastrointestinal complaints Genitourinary: Genitourinary: Denies dysuria Musculoskeletal: Musculoskeletal: Denies neck pain Integumentary/Breasts: Skin/Breast: Denies dry skin Neurologic: Reports Normal hearing present, Denies headache(s) and Denies weakness Psychiatric: Psychiatric: Denies anxiety Endocrine: Endocrine: Denies change in body appearance Hematologic/Lymphatic: Hematologic/Lymphatic: Denies easy bleeding Allergic/Immunologic: Allergic/Immunologic: Denies urticaria PMFSH Past Medical History Medical History (Updated 01/11/22 @ 12:31 by Red Holland MD) Asthma Chronic GERD Hemorrhoid Hypercholesterolemia Overweight (BMI 25.0-29.9) Family History Family History Father Family history of malignant neoplasm Other Family history of alcoholism Family history of arthritis Hypertension Social History Social History (Updated 07/29/21 @ 09:53 by Bridgtete Madrigal CMA) Smoking packs per day: 2 Smoking cigarettes per day: 40.0 Years smoked: 30 Smoking pack-years: 60.00 Smoking status: Former smoker Tobacco type: cigarettes Smoking end date: 08/08/06 Alcohol intake: current Drinks per week: 2 Substance use: former Substance use type: does not use Living arrangements: with family Spiritual care concerns: No Meds Home Medications and Allergies Home Medications Medication Instructions Recorded Confirmed Type montelukast 10 mg tablet 10 mg PO DAILY 06/05/20 12/31/21 History amlodipine 10 mg tablet 10 mg PO DAILY 07/29/21 12/31/21 History cetirizine 10 mg capsule (Zyrtec) 10 mg PO DAILY PRN Allergic 07/29/21 12/31/21 History Symptoms omeprazole 20 mg capsule,delayed 20 mg PO DAILY 07/29/21 12/31/21 History release atorvastatin 40 mg tablet 40 tablet PO DAILY 12/31/21 12/31/21 History Allergies Allergy/AdvReac Type Severity Reaction Status Date / Time Penicillins Allergy Unknown Rash Verified 01/11/22 12:12 Exam Const: General: comfortable and no acute distress HENMT: General nose exam: Normal nares present Eyes: General: appearance normal, both eyes and all related structures Neck: Neck: no JVD Resp: Auscultation: clear to auscultation bilaterally Cardio: Rate: regular rate Rhythm: regular rhythm GI: Inspection: non-distended GI Palp: Yes Soft to palpation Skin: General skin exam: normal color Neuro: General: gait normal Speech: normal speech Extrem: General: normal to inspection Psych: Mental Status: mental status grossly normal Assessment and Plan Assessment and plan (1) Hemorrhoid: Code(s): K64.9 - Unspecified hemorrhoids Status: Acute Assessment and Plan: will treat with IRC
--- NOTE | 2022-01-11 12:31 | W.PM.PROC2 ---
Procedure Note - Detailed Date of Procedure 01/11/22 Pre-op Diagnosis hemorrhoids Post-op Diagnosis Same Procedure Performed IRC Surgeon Red Holland MD Anesthesia None Findings rectal exam performed, small internal hemorrhoid at 6 o'clock, no bleeding. Description of Procedure anoscope introduced then advanced IRC probe, hemorrhoid treated 1.5 seconds x5 times, no complications Condition Stable
== END 2022-01-11 12:39 | disposition home or self-care (01) ==
PROVIDERS: PCP Internal Medicine; Visit Provider Internal Medicine Gastroenterology
PROC: (CPT 46930; principal; 2022-01-11 12:30)
DX: K64.8 Other hemorrhoids (principal); J45.909 Unspecified asthma, uncomplicated; K21.9 Gastro-esophageal reflux disease without esophagitis; E78.00 Pure hypercholesterolemia, unspecified; Z87.891 Personal history of nicotine dependence
CPT/HCPCS: 46930

== ENCOUNTER 2022-04-16 07:21 | Outpatient (CLI) | payer OTHER, SELFPAY ==
[2022-04-16 07:46] LABS: Hemoglobin A1C 5.5 % (<5.7)
[2022-04-16 07:49] LABS: Alanine Aminotransferase 30 U/L (16-63); Albumin Level 3.8 g/dL (3.4-5.0); Alkaline Phosphatase 53 U/L (46-116); Anion Gap 8 mmol/L (8-16); Aspartate Amino Transferase 16 U/L (15-37); Bilirubin,Total 0.8 mg/dL (0.00-1.00); Blood Urea Nitrogen 19 mg/dL (7-18); Calcium 8.7 mg/dL (8.5-10.1); Carbon Dioxide 27 mmol/L (21-32); Chloride 103 mmol/L (98-108); Cholesterol 140 mg/dL (0-200); Estimated Glomerular Filt Rate > 60; Glucose 109 mg/dL (70-99); HDL Direct 42 mg/dL (40-60); LDL Cholesterol Calculated 74 mg/dL (<130); Osmolality Calculated 289 mOsm/kg (285-295); Sodium 138 mmol/L (136-145); Total Protein 6.9 g/dL (6.4-8.2); Triglycerides 119 mg/dL (0-150)
== END 2022-04-16 07:22 | disposition home or self-care (01) ==
LOC: CHSLAB 07:23
PROVIDERS: PCP Internal Medicine; Visit Provider Internal Medicine
DX: E78.2 Mixed hyperlipidemia (principal); R73.01 Impaired fasting glucose
CPT/HCPCS: 36415; 80053; 80061; 83036

== ENCOUNTER 2022-05-11 12:40 | Outpatient (CLI) | payer OTHER, SELFPAY ==
--- NOTE | ~2022-05-11 | XR_ITS ---
EXAM: XR hand RT min 3V, XR wrist RT min 3V DATE: 05/11/2022 13:14 HISTORY: Right hand and wrist pain . COMPARISON: None available. FINDINGS: Normal mineralization. No fracture or dislocation. No lytic or blastic lesion. Scattered o steoarthritic changes, mild in the fingers, moderate in the right trapeziometacarpal joint and right fourth MCP joint. Osteochondral defect versus infraction in the head of the fourth metacarpal. No ero madhu or periosteal change. Soft tissues within normal limits. IMPRESSION: Possible osteochondral lesion or infraction in the head of the fourth metacarpal. Scatter ed osteoarthritic changes, moderate in the trapeziometacarpal joint. Reviewed, dictated and finalized at location K. IMPRESSION: Possible osteochondral lesion or infraction in the head of the four th metacarpal. Scattered osteoarthritic changes, moderate in the trapeziometaca rpal joint.
== END 2022-05-11 12:41 | disposition home or self-care (01) ==
LOC: CHSIMG 12:42
PROVIDERS: PCP Internal Medicine; Visit Provider Internal Medicine
DX: M25.531 Pain in right wrist (principal); M25.541 Pain in joints of right hand
CPT/HCPCS: 73110; 73130

== ENCOUNTER 2022-09-14 10:45 | Outpatient (CLI) | payer OTHER, SELFPAY ==
--- NOTE | ~2022-09-14 | US_ITS ---
EXAMINATION: US thyroid DATE: 09/14/2022 11:06 INDICATION: Hypothyroidism. TECHNIQUE: Multiple ultrasound images of the thyroid were obtained. COMPARISON: None. FINDINGS: The right thyroid lobe measures 5.4 x 3.2 x 2.8 cm. The left thyroid lobe measures 5.0 x 2.7 x 3.0 c m. Thyroid is diffusely heterogeneous and filled with nodules of similar ultrasound appearance witho ut normal intervening parenchyma. IMPRESSION: 1. Multinodular goiter, likely benign. Biopsy is likely not needed. Reviewed, dictated and finalized at location A. 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
== END 2022-09-14 10:46 | disposition home or self-care (01) ==
LOC: CHSIMG 10:46
PROVIDERS: PCP Internal Medicine; Visit Provider Internal Medicine
DX: E78.2 Mixed hyperlipidemia (principal); E04.2 Nontoxic multinodular goiter
CPT/HCPCS: 76536

== ENCOUNTER 2022-10-14 06:59 | Outpatient (CLI) | payer OTHER, SELFPAY ==
[2022-10-14 07:10] LABS: Basophils Absolute Auto 0.08 K/mm3 (0.00-0.10); Basophils Percent Auto 0.9 % (0.0-1.0); Eosinophils Absolute Auto 0.56 K/mm3 (0.02-0.50); Eosinophils Percent Auto 6.2 % (1.0-6.0); Hematocrit 45.2 % (40.0-54.0); Hemoglobin 15.4 g/dL (14.0-18.0); Immature Granulocyte Absolute 0.03 K/mm3 (0.00-0.00); Immature Granulocyte Percent A 0.3 % (0.0-0.0); Lymphocytes Absolute Auto 2.66 K/mm3 (1.10-4.50); Lymphocytes Percent Auto 29.5 % (18.0-42.0); Mean Corpuscular HGB Conc 34.1 g/dL (32.0-36.0); Mean Corpuscular Hemoglobin 31.2 pg (27.0-31.0); Mean Corpuscular Volume 91.7 fL (78.0-102.0); Mean Platelet Volume 10.4 fl (8.7-11.0); Monocytes Absolute Auto 0.59 K/mm3 (0.10-0.90); Monocytes Percent Auto 6.5 % (2.0-11.0); Neutrophils Absolute Auto 5.1 K/mm3 (1.7-7.2); Neutrophils Percent Auto 56.6 % (50.0-70.0); Platelet Count Result 182 K/mm3 (150-420); Red Blood Count 4.93 M/mm3 (4.70-6.10); Red Cell Distribution Width 12.7 % (11.6-14.4)
[2022-10-14 07:15] LABS: Appearance Urine Clear (Clear); Bilirubin Urine Negative (Negative); Blood Urine Negative (Negative); Color Urine Yellow (Yellow); Glucose Urine UA Negative (Negative); Ketones Urine Negative (Negative); Leukocyte Esterase Ur Negative (Negative); Nitrate Urine Negative (Negative); Protein Urine Negative (Negative); Specific Grav Ur 1.025 (1.010-1.020); Urobilinogen Urine 0.2 mg/dL (0.2-1.0); pH Urine 6.5 (5.0-8.0)
[2022-10-14 07:50] LABS: Add Urine Microscopic? NO
[2022-10-14 07:58] LABS: Hemoglobin A1C 5.4 % (<5.7)
[2022-10-14 08:05] LABS: Alanine Aminotransferase 31 U/L (16-63); Albumin Level 3.9 g/dL (3.4-5.0); Alkaline Phosphatase 45 U/L (46-116); Anion Gap 8 mmol/L (8-16); Aspartate Amino Transferase 20 U/L (15-37); Bilirubin,Total 0.8 mg/dL (0.00-1.00); Blood Urea Nitrogen 20 mg/dL (7-18); Calcium 8.9 mg/dL (8.5-10.1); Carbon Dioxide 28 mmol/L (21-32); Chloride 108 mmol/L (98-108); Cholesterol 172 mg/dL (0-200); Creatine Kinase 119 U/L (39-308); Estimated Glomerular Filt Rate > 60; Free T3 3.24 pg/mL (2.18-3.98); Free T4 Free Thyroxine 0.84 ng/dL (0.76-1.46); Glucose 112 mg/dL (70-99); HDL Direct 52 mg/dL (40-60); LDL Cholesterol Calculated 104 mg/dL (<130); Osmolality Calculated 301 mOsm/kg (285-295); Potassium 4.3 mmol/L (3.5-5.1); Sodium 144 mmol/L (136-145); Thyroid Stimulating Hormone 0.57 uIU/mL (0.36-3.74); Total Protein 6.9 g/dL (6.4-8.2); Triglycerides 80 mg/dL (0-150)
[2022-10-14 08:18] LABS: Erythrocyte Sedimentation Rate 7 mm/hr (0-20)
[2022-10-17 19:59] LABS: Immunoglobulin E 94 kU/L (<=114)
== END 2022-10-14 07:00 | disposition home or self-care (01) ==
LOC: CHSLAB 07:01
PROVIDERS: PCP Internal Medicine; Visit Provider Internal Medicine
DX: R73.01 Impaired fasting glucose (principal); I10 Essential (primary) hypertension; E78.2 Mixed hyperlipidemia; R21 Rash and other nonspecific skin eruption; R79.89 Other specified abnormal findings of blood chemistry
CPT/HCPCS: 36415; 80053; 80061; 81003; 82550; 82784; 82785; 83036; 84439; 84443; 84481; 85025; 85652

== ENCOUNTER 2022-11-05 12:52 | Outpatient (CLI) | payer OTHER, SELFPAY ==
--- NOTE | ~2022-11-05 | XR_ITS ---
XR chest 2V DATE: 11/05/2022 13:06 INDICATION: Chronic shortness of breath, wheezing TECHNIQUE: PA and lateral views COMPARISON: 07/16/2022 view chest FINDINGS: Normal heart size. No hilar or mediastinal enlargement. No pulmonary infiltrate or consolidation, pleural effusion or pulmonary vascular congestion or pneumo thorax. Degenerative spurring of the thoracic spine. IMPRESSION: No active cardiopulmonary disease Reviewed, dictated and finalized at location B.
== END 2022-11-05 12:53 | disposition home or self-care (01) ==
PROVIDERS: PCP Internal Medicine; Visit Provider Internal Medicine
DX: R06.00 Dyspnea, unspecified (principal)
CPT/HCPCS: 71046

== ENCOUNTER 2022-12-07 08:16 | Outpatient (CLI) | payer OTHER, SELFPAY ==
--- NOTE | 2022-12-07 09:23 | NIOX ---
Niox Report PFT: FeNO Evaluation (NIOX) Start: 12/07/22 09:03 Freq: Status: Active Protocol: Activity Type Activity Date Activity User E-sign Co-sign Detail Recorded Client Recorded Date Recorded By Document 12/07/22 09:03 GABRIEL [id number] 12/07/22 09:04 GABRIEL 12/07/22 09:03 NIOX Evaluation [NIOX Measurement] -FeNO Measurement Equals (ppb) 13 [NIOX Evaluation] -Level of Airway Inflammation Low (<25) [Charges] -NIOX Measurement Charges Yes
== END 2022-12-07 08:17 | disposition home or self-care (01) ==
LOC: CHSCARD 08:18
PROVIDERS: PCP Internal Medicine; Visit Provider Internal Medicine
DX: R06.00 Dyspnea, unspecified (principal)
CPT/HCPCS: 94060; 94726; 94729; 95012

== ENCOUNTER 2022-12-23 07:51 | Outpatient (CLI) | payer OTHER, SELFPAY ==
--- NOTE | ~2022-12-23 | CT_ITS ---
EXAMINATION: CT lung screening DATE: 12/23/2022 08:08 INDICATION: Personal history of nicotine dependence TECHNIQUE: Computed tomography (CT) of the chest was performed without intravenous contrast. The dose -length product was 151.66 mGy-cm. Automated exposure control and iterative reconstruction technique were employed. COMPARISON: No prior studies for comparison. FINDINGS: No thoracic lymphadenopathy. There is atherosclerosis of the aorta and coronary arteries. N o significant pleural or pericardial effusion. There are left renal parapelvic cysts. No focal consol idation. No endobronchial lesions. No pneumothorax. No suspicious pulmonary nodules or masses. IMPRESSION: 1. Lung-RADS category 1: Negative. Continue annual screening with noncontrast low-dose chest CT in 12 months. Reviewed, dictated and finalized at location D. IMPRESSION: 1. Lung-RADS category 1: Negative. Continue annual screening with noncontrast l ow-dose chest CT in 12 months.
== END 2022-12-23 07:52 | disposition home or self-care (01) ==
LOC: CHSIMG 07:53
PROVIDERS: PCP Internal Medicine; Visit Provider Internal Medicine
DX: Z12.2 Encounter for screening for malignant neoplasm of respiratory organs (principal); Z87.891 Personal history of nicotine dependence
CPT/HCPCS: 71271

== ENCOUNTER 2023-03-07 11:55 | Outpatient (CLI) | payer OTHER, SELFPAY ==
--- NOTE | ~2023-03-07 | US_ITS ---
EXAMINATION: US venous doppler [facility] DATE: 03/07/2023 12:21 INDICATION: Left lower limb pain and swelling. TECHNIQUE: Grayscale ultrasound images without and with compression and Doppler ultrasound images of the left lower extremity veins were obtained. COMPARISON: None. FINDINGS: The visualized portions of left common femoral vein, profunda (deep) femoral vein, femoral vein, popl iteal vein, peroneal veins, posterior tibial veins, and greater saphenous vein outflow are patent. IMPRESSION: 1. No deep venous thrombosis. Reviewed, dictated and finalized at location A.
== END 2023-03-07 11:56 | disposition home or self-care (01) ==
PROVIDERS: PCP Internal Medicine; Visit Provider Internal Medicine
DX: M79.89 Other specified soft tissue disorders (principal)
CPT/HCPCS: 93971

== ENCOUNTER 2023-03-08 12:28 | Outpatient (CLI) | payer OTHER, SELFPAY ==
--- NOTE | ~2023-03-08 | US_ITS ---
EXAMINATION: US art doppler w press LE BI DATE: 03/08/2023 13:04 INDICATION: Absent pedal pulses at the left lower limb TECHNIQUE: Segmental pressures and plethysmographic and Doppler waveforms of the brachial and lower e xtremity arteries were obtained. COMPARISON: None. FINDINGS: Right and left brachial artery pressures of 126 mm Hg and 126 mm Hg, respectively, are concordant (no rmal difference <= 30 mmHg). The right ankle-brachial index (QUIANA) is 1.19 (normal >= 0.9-1). The right great toe-brachial index (T BI) is 0.95 (normal >= 0.6-0.8). Arterial waveforms are biphasic at the right dorsalis pedis artery a nd triphasic at the right posterior tibial, popliteal and femoral arteries with brisk systolic upstro kes throughout. The left QUIANA is 1.18. The left TBI is 1.02. Arterial waveforms are triphasic with brisk systolic upst rokes at the left femoral, popliteal, posterior tibial and dorsalis pedis arteries. IMPRESSION: 1. Normal QUIANA's and TBI's bilaterally. No significant occlusive disease. Reviewed, dictated and finalized at location L.
== END 2023-03-08 12:29 | disposition home or self-care (01) ==
LOC: CHSIMG 12:29
PROVIDERS: PCP Internal Medicine; Visit Provider Internal Medicine
DX: M79.89 Other specified soft tissue disorders (principal)
CPT/HCPCS: 93923

== ENCOUNTER 2023-03-14 12:44 | Outpatient (CLI) | payer OTHER, SELFPAY ==
[2023-03-14 12:58] LABS: Basophils Absolute Auto 0.04 K/mm3 (0.00-0.10); Basophils Percent Auto 0.5 % (0.0-1.0); Eosinophils Absolute Auto 0.39 K/mm3 (0.02-0.50); Eosinophils Percent Auto 4.7 % (1.0-6.0); Hematocrit 43.8 % (40.0-54.0); Hemoglobin 14.6 g/dL (14.0-18.0); Immature Granulocyte Absolute 0.05 K/mm3 (0.00-0.00); Immature Granulocyte Percent A 0.6 % (0.0-0.0); Lymphocytes Absolute Auto 2.45 K/mm3 (1.10-4.50); Lymphocytes Percent Auto 29.4 % (18.0-42.0); Mean Corpuscular HGB Conc 33.3 g/dL (32.0-36.0); Mean Corpuscular Hemoglobin 30.9 pg (27.0-31.0); Mean Corpuscular Volume 92.8 fL (78.0-102.0); Monocytes Percent Auto 7.2 % (2.0-11.0); Neutrophils Absolute Auto 4.8 K/mm3 (1.7-7.2); Neutrophils Percent Auto 57.6 % (50.0-70.0); Platelet Count Result 189 K/mm3 (150-420); Red Blood Count 4.72 M/mm3 (4.70-6.10); Red Cell Distribution Width 12.4 % (11.6-14.4); White Blood Count 8.3 K/mm3 (4.8-10.8)
[2023-03-14 13:07] LABS: Anion Gap 9 mmol/L (8-16); Blood Urea Nitrogen 18 mg/dL (7-18); Carbon Dioxide 27 mmol/L (21-32); Chloride 105 mmol/L (98-108); Estimated Glomerular Filt Rate > 60; Glucose 99 mg/dL (70-99); Osmolality Calculated 293 mOsm/kg (285-295); Sodium 141 mmol/L (136-145)
== END 2023-03-14 12:45 | disposition home or self-care (01) ==
LOC: CHSLAB 12:46
PROVIDERS: PCP Internal Medicine; Visit Provider Internal Medicine
DX: M79.89 Other specified soft tissue disorders (principal)
CPT/HCPCS: 36415; 80048; 85025; 85380

== ENCOUNTER 2023-03-14 14:49 | Outpatient (CLI) | payer OTHER, SELFPAY ==
--- NOTE | ~2023-03-14 | US_ITS ---
EXAMINATION: US venous doppler [facility] DATE: 03/14/2023 15:15 INDICATION: EDEMA . TECHNIQUE: Grayscale images without and with compression and Doppler images of the left lower extremi ty veins were obtained. COMPARISON: None FINDINGS: The left common femoral vein, profunda (deep) femoral vein, femoral vein, popliteal vein, peroneal v ein, posterior tibial veins, gastrocnemius vein, and greater saphenous vein are patent. Subcutaneous edema. IMPRESSION: Patent left lower extremity veins. No evidence of deep venous thrombosis. Reviewed, dictated and finalized at location K.
== END 2023-03-14 14:50 | disposition home or self-care (01) ==
LOC: ANHIMG 14:51
PROVIDERS: PCP Internal Medicine; Visit Provider Internal Medicine
DX: M79.89 Other specified soft tissue disorders (principal)
CPT/HCPCS: 93971

== ENCOUNTER 2023-05-05 07:38 | Outpatient (CLI) | payer OTHER, SELFPAY ==
[2023-05-05 07:52] LABS: Basophils Absolute Auto 0.06 K/mm3 (0.00-0.10); Basophils Percent Auto 0.5 % (0.0-1.0); Eosinophils Absolute Auto 0.28 K/mm3 (0.02-0.50); Eosinophils Percent Auto 2.5 % (1.0-6.0); Hematocrit 47.2 % (40.0-54.0); Hemoglobin 15.5 g/dL (14.0-18.0); Immature Granulocyte Absolute 0.05 K/mm3 (0.00-0.00); Immature Granulocyte Percent A 0.5 % (0.0-0.0); Lymphocytes Absolute Auto 3.45 K/mm3 (1.10-4.50); Lymphocytes Percent Auto 31.2 % (18.0-42.0); Mean Corpuscular HGB Conc 32.8 g/dL (32.0-36.0); Mean Corpuscular Hemoglobin 30.9 pg (27.0-31.0); Mean Corpuscular Volume 94.2 fL (78.0-102.0); Monocytes Absolute Auto 0.73 K/mm3 (0.10-0.90); Monocytes Percent Auto 6.6 % (2.0-11.0); Neutrophils Absolute Auto 6.5 K/mm3 (1.7-7.2); Neutrophils Percent Auto 58.7 % (50.0-70.0); Platelet Count Result 171 K/mm3 (150-420); Red Blood Count 5.01 M/mm3 (4.70-6.10); Red Cell Distribution Width 13.5 % (11.6-14.4); White Blood Count 11.1 K/mm3 (4.8-10.8)
[2023-05-05 07:53] LABS: Appearance Urine Clear (Clear); Bilirubin Urine Negative (Negative); Blood Urine Negative (Negative); Color Urine Light Yellow (Yellow); Glucose Urine UA Negative (Negative); Ketones Urine 2+ (Negative); Leukocyte Esterase Ur Negative (Negative); Nitrate Urine Negative (Negative); Protein Urine Negative (Negative); Specific Grav Ur 1.015 (1.010-1.020); Urobilinogen Urine 0.2 mg/dL (0.2-1.0); pH Urine 6.5 (5.0-8.0)
[2023-05-05 08:01] LABS: Hemoglobin A1C 5.4 % (<5.7)
[2023-05-05 08:04] LABS: Add Urine Microscopic? YES; Bacteria Urine Rare /hpf; RBC Urine None seen /hpf (0-2); WBC Urine None seen /hpf (0-3)
[2023-05-05 08:09] LABS: Creatinine Urine 69.09 mg/dL (40-278); MALB Creatinine Ratio 18.8 mg/g (0-30); Microalbumin Urine Random < 13.0 mg/L
[2023-05-05 08:41] LABS: Alanine Aminotransferase 48 U/L (16-63); Albumin Level 3.6 g/dL (3.4-5.0); Alkaline Phosphatase 45 U/L (46-116); Anion Gap 11 mmol/L (8-16); Aspartate Amino Transferase 24 U/L (15-37); Bilirubin,Total 0.9 mg/dL (0.00-1.00); Blood Urea Nitrogen 25 mg/dL (7-18); Carbon Dioxide 25 mmol/L (21-32); Chloride 105 mmol/L (98-108); Cholesterol 256 mg/dL (0-200); Creatine Kinase 183 U/L (39-308); Estimated Glomerular Filt Rate > 60; Glucose 85 mg/dL (70-99); HDL Direct 67 mg/dL (40-60); LDL Cholesterol Calculated 166 mg/dL (<130); Osmolality Calculated 295 mOsm/kg (285-295); Potassium 4.1 mmol/L (3.5-5.1); Sodium 141 mmol/L (136-145); Total Protein 6.4 g/dL (6.4-8.2); Triglycerides 115 mg/dL (0-150)
== END 2023-05-05 07:39 | disposition home or self-care (01) ==
LOC: CHSLAB 07:40
PROVIDERS: PCP Internal Medicine; Visit Provider Internal Medicine
DX: R73.01 Impaired fasting glucose (principal); E78.5 Hyperlipidemia, unspecified; I10 Essential (primary) hypertension
CPT/HCPCS: 36415; 80053; 80061; 81001; 82043; 82550; 83036; 85025

== ENCOUNTER 2023-07-29 16:17 | Emergency (ER) | payer OTHER, SELFPAY ==
--- NOTE | ~2023-07-29 | CT_ITS ---
EXAMINATION: CT abdomen pelvis wo con DATE: 07/29/2023 17:25 INDICATION: Right flank pain radiating to right groin for one day TECHNIQUE: Computed tomography (CT) of the abdomen and pelvis was performed without intravenous contr ast. Automated exposure control and iterative reconstruction technique were employed. Exam dose: 320 .30 mGy-cm total exam DLP. COMPARISON: None. FINDINGS: The lung bases are clear of infiltrate or consolidation. Normal heart size. No pericardial or pleural effusion. The liver, gallbladder, bile ducts, spleen, pancreas, pancreatic duct, and adrenal glands are unremar kable. No renal mass lesion is evident on this limited noncontrast examination. There is mild right hydroureteronephrosis secondary to right ureterovesical junction calculus which m easures approximately 2 x 3 mm. Minimal prostate calcification. There is atherosclerotic calcification but normal caliber of the abdominal aorta and iliac and femora l arteries. No intraperitoneal or retroperitoneal or pelvic mass lesion or adenopathy or ascites is detected. Small fat-containing left inguinal hernia. No bowel obstruction or intraperitoneal free air. There is irregularity and patchy sclerosis of the apposing vertebral endplates and severe disc space narrowing and irregularity at L2-3 suggesting discitis. Moderate degenerative disc disease at L1-2, L4-5 and to a greater extent L5-S1. Bilateral L5 pars interarticularis defects with associated grade 1 anterolisthesis at L5-S1. IMPRESSION: Approximately 2 x 3 mm right ureterovesical junction calculus with mild right hydrourete ronephrosis Bilateral L5 pars interarticularis defects with grade 1 anterolisthesis at L5-S1 Probable discitis at L2-3 Multilevel degenerative disc disease of the lumbar spine Reviewed, dictated and finalized at Location A. Reviewed, dictated and finalized at location A. 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
[2023-07-29 16:18] VITALS: BP 172/99; PULSE 74; RESP 18; TEMP 36.6; O2SAT 98
--- NOTE | 2023-07-29 16:20 | ED.ABDPAIN ---
HPI - Abdominal Pain General Chief Complaint: Urogenital-Male Stated Complaint: abdominal pain/right side Time Seen by Provider: 07/29/23 16:19 Source: patient Mode of arrival: ambulatory Limitations: no limitations History of Present Illness HPI narrative: Patient is 62-year-old male with right lower quadrant pain and right flank and back pain. This started yesterday. No history of kidney stones. MD elicited complaint: abdominal pain (right lower) and flank pain (right) Pertinent past history: none Onset (ago): day(s) (2) Pain Consistency: intermittent Location: RLQ, R flank and other (right lower back) Severity: moderate Pain scale (0-10): 5 Quality: stabbing and sharp Radiation: other (right groin/testicle) Migration to: R flank Exacerbating factors: movement Relieving factors: movement Associated symptoms: nausea Related Data Home Medications Medication Instructions Recorded Confirmed amlodipine 10 mg tablet 10 mg PO DAILY 07/29/21 07/29/23 cetirizine 10 mg capsule (Zyrtec) 10 mg PO DAILY PRN Allergic 07/29/21 07/29/23 Symptoms omeprazole 20 mg capsule,delayed 20 mg PO DAILY 07/29/21 07/29/23 release atorvastatin 40 mg tablet 40 tablet PO DAILY 12/31/21 07/29/23 meloxicam 15 mg tablet 15 mg PO DAILY 07/29/23 07/29/23 Allergies Allergy/AdvReac Type Severity Reaction Status Date / Time Penicillins Allergy Unknown Rash Verified 07/29/23 16:25 Review of Systems Review of Systems: All systems reviewed & are unremarkable except as noted in HPI and below Constitutional: Constitutional: Reports no additional constitutional complaints Eyes: Eyes: Reports no additional eye complaints ENT: Reports system reviewed and no additional complaints, except as documented Cardiovascular: Cardiovascular: Reports no additional cardiovascular complaints Respiratory: Respiratory: Reports no additional respiratory complaints Gastrointestinal: Gastrointestinal: Reports no additional gastrointestinal complaints Genitourinary: Genitourinary: Reports no additional male genitourinary complaints Musculoskeletal: Musculoskeletal: Reports no additional musculoskeletal complaints Integumentary/Breasts: Skin/Breast: Reports system reviewed and no additional complaints, except as docu Neurologic: Reports system reviewed and no additional complaints, except as documented Psychiatric: Psychiatric: Reports no additional psychiatric complaints Endocrine: Endocrine: Reports no additional endocrine complaints Hematologic/Lymphatic: Hematologic/Lymphatic: Reports no additional hematologic/lymphatic complaints Allergic/Immunologic: Allergic/Immunologic: Reports no additional allergic/immunologic complaints PMFSH Past Medical History Medical History Asthma Chronic GERD Hemorrhoid Hypercholesterolemia Overweight (BMI 25.0-29.9) Family History Family History Father Family history of malignant neoplasm Other Family history of alcoholism Family history of arthritis Hypertension Social History Social History Smoking packs per day: 2 Smoking cigarettes per day: 40.0 Years smoked: 30 Smoking pack-years: 60.00 Smoking status: Former smoker Tobacco type: cigarettes Smoking end date: 08/08/06 Alcohol intake: current Drinks per week: 2 Substance use: former Substance use type: does not use Living arrangements: with family Spiritual care concerns: No Exam Const: General: healthy appearing Nutritional Appearance: well nourished Orientation/consciousness: patient oriented x3 HENMT: Head: normal to inspection Ears: external ears normal Face/Nose/Sinus: Normal external nose present Eyes: Conjunctivae: conjunctivae normal Pupils: Equal, round and reactive pupils present EOM: EOMs intact bilaterally Neck: Neck: normal visua
[2023-07-29 16:39] LABS: Appearance Urine Clear (Clear); Basophils Absolute Auto 0.07 K/mm3 (0.00-0.10); Basophils Percent Auto 0.4 % (0.0-1.0); Bilirubin Urine Negative (Negative); Blood Urine Trace-Intact (Negative); Color Urine Yellow (Yellow); Eosinophils Absolute Auto 0.09 K/mm3 (0.02-0.50); Eosinophils Percent Auto 0.5 % (1.0-6.0); Glucose Urine UA Negative (Negative); Hematocrit 45.3 % (40.0-54.0); Hemoglobin 15.3 g/dL (14.0-18.0); Immature Granulocyte Percent A 0.6 % (0.0-0.0); Ketones Urine 2+ (Negative); Leukocyte Esterase Ur Negative LEU/UL (Negative); Lymphocytes Absolute Auto 2.32 K/mm3 (1.10-4.50); Lymphocytes Percent Auto 13.9 % (18.0-42.0); Mean Corpuscular HGB Conc 33.8 g/dL (32.0-36.0); Mean Corpuscular Volume 91.7 fL (78.0-102.0); Mean Platelet Volume 9.8 fl (8.7-11.0); Monocytes Absolute Auto 1.04 K/mm3 (0.10-0.90); Monocytes Percent Auto 6.2 % (2.0-11.0); Neutrophils Percent Auto 78.4 % (50.0-70.0); Nitrate Urine Negative (Negative); Platelet Count Result 189 K/mm3 (150-420); Protein Urine Negative (Negative); Red Blood Count 4.94 M/mm3 (4.70-6.10); Red Cell Distribution Width 12.9 % (11.6-14.4); Specific Grav Ur >= 1.030 (1.010-1.020); Urobilinogen Urine 0.2 mg/dL (0.2-1.0); White Blood Count 16.7 K/mm3 (4.8-10.8)
[2023-07-29 16:44] LABS: Add Urine Microscopic? YES; Bacteria Urine Trace /hpf; Squamous Epithelial Cell Urine Rare /hpf (Few); WBC Urine None seen /hpf (0-3)
[2023-07-29 16:53] LABS: Alanine Aminotransferase 31 U/L (16-63); Albumin Level 3.9 g/dL (3.4-5.0); Alkaline Phosphatase 57 U/L (46-116); Anion Gap 7 mmol/L (8-16); Aspartate Amino Transferase 15 U/L (15-37); Bilirubin,Total 1.5 mg/dL (0.00-1.00); Blood Urea Nitrogen 25 mg/dL (7-18); Calcium 9.3 mg/dL (8.5-10.1); Carbon Dioxide 30 mmol/L (21-32); Chloride 98 mmol/L (98-108); Estimated CRCL calculation 56 ml/min; Estimated Glomerular Filt Rate > 60; Glucose 121 mg/dL (70-99); Osmolality Calculated 285 mOsm/kg (285-295); Potassium 3.4 mmol/L (3.5-5.1); Sodium 135 mmol/L (136-145); Total Protein 7.4 g/dL (6.4-8.2)
[2023-07-29] MEDS: ONDANSETRON HCL ODT 4 MG TABLET PO (17:14)
[2023-07-29] MEDS: KETOROLAC (*BKC) 60 MG/2 ML VIAL IM (17:14)
[2023-07-29 18:08] VITALS: BP 172/98; PULSE 84; RESP 18; TEMP 37.1; O2SAT 96
== END 2023-07-29 18:13 | disposition home or self-care (01) ==
PROVIDERS: Emergency Provider Emergency Medicine; PCP Internal Medicine
DX: N20.0 Calculus of kidney (principal); D72.829 Elevated white blood cell count, unspecified; Z79.899 Other long term (current) drug therapy; Z79.1 Long term (current) use of non-steroidal anti-inflammatories (NSAID); Z87.891 Personal history of nicotine dependence
CPT/HCPCS: 36415; 74176; 80053; 81001; 85025; 96372; 99284; A9270; J1885

== ENCOUNTER 2023-09-28 07:09 | Outpatient (CLI) | payer OTHER, SELFPAY ==
[2023-09-28 07:22] LABS: Basophils Absolute Auto 0.08 K/mm3 (0.00-0.10); Eosinophils Absolute Auto 0.51 K/mm3 (0.02-0.50); Eosinophils Percent Auto 6.5 % (1.0-6.0); Hematocrit 45.5 % (40.0-54.0); Hemoglobin 15.2 g/dL (14.0-18.0); Immature Granulocyte Absolute 0.03 K/mm3 (0.00-0.00); Immature Granulocyte Percent A 0.4 % (0.0-0.0); Lymphocytes Absolute Auto 2.55 K/mm3 (1.10-4.50); Lymphocytes Percent Auto 32.5 % (18.0-42.0); Mean Corpuscular HGB Conc 33.4 g/dL (32.0-36.0); Mean Corpuscular Hemoglobin 30.8 pg (27.0-31.0); Mean Corpuscular Volume 92.1 fL (78.0-102.0); Mean Platelet Volume 9.8 fl (8.7-11.0); Monocytes Percent Auto 6.4 % (2.0-11.0); Neutrophils Absolute Auto 4.2 K/mm3 (1.7-7.2); Neutrophils Percent Auto 53.2 % (50.0-70.0); Platelet Count Result 184 K/mm3 (150-420); Red Blood Count 4.94 M/mm3 (4.70-6.10); Red Cell Distribution Width 12.8 % (11.6-14.4); White Blood Count 7.9 K/mm3 (4.8-10.8)
[2023-09-28 07:23] LABS: Appearance Urine Clear (Clear); Bilirubin Urine Negative (Negative); Blood Urine Negative (Negative); Color Urine Yellow (Yellow); Glucose Urine UA Negative (Negative); Ketones Urine Negative (Negative); Leukocyte Esterase Ur Negative LEU/UL (Negative); Nitrate Urine Negative (Negative); Protein Urine Negative (Negative); Specific Grav Ur >= 1.030 (1.010-1.020); Urobilinogen Urine 0.2 mg/dL (0.2-1.0)
[2023-09-28 07:28] LABS: Add Urine Microscopic? NO
[2023-09-28 07:38] LABS: Hemoglobin A1C 4.9 % (<5.7)
[2023-09-28 08:33] LABS: Alanine Aminotransferase 25 U/L (16-63); Albumin Level 3.7 g/dL (3.4-5.0); Alkaline Phosphatase 46 U/L (46-116); Anion Gap 8 mmol/L (8-16); Aspartate Amino Transferase 15 U/L (15-37); Bilirubin,Total 0.8 mg/dL (0.00-1.00); Blood Urea Nitrogen 20 mg/dL (7-18); Calcium 8.6 mg/dL (8.5-10.1); Carbon Dioxide 28 mmol/L (21-32); Chloride 106 mmol/L (98-108); Cholesterol 185 mg/dL (0-200); Creatine Kinase 94 U/L (39-308); Estimated Glomerular Filt Rate > 60; Glucose 111 mg/dL (70-99); HDL Direct 60 mg/dL (40-60); LDL Cholesterol Calculated 112 mg/dL (<130); Osmolality Calculated 297 mOsm/kg (285-295); Potassium 4.4 mmol/L (3.5-5.1); Sodium 142 mmol/L (136-145); Total Protein 6.4 g/dL (6.4-8.2); Triglycerides 65 mg/dL (0-150)
== END 2023-09-28 07:10 | disposition home or self-care (01) ==
PROVIDERS: PCP Internal Medicine; Visit Provider Internal Medicine
DX: Z12.5 Encounter for screening for malignant neoplasm of prostate (principal); N39.0 Urinary tract infection, site not specified; E78.2 Mixed hyperlipidemia; I10 Essential (primary) hypertension; R73.01 Impaired fasting glucose
CPT/HCPCS: 36415; 80053; 80061; 81003; 82550; 83036; 84153; 85025; G0103

== ENCOUNTER 2023-11-28 08:16 | Outpatient (CLI) | payer OTHER, SELFPAY ==
--- NOTE | 2023-11-28 08:23 | EST_ITS ---
Patient Info Name: Vidal Donovan Age: 62 years : 1960 Gender: Male Wt: 155 lbs HR: 76 bpm BP: 130 / 86 mmHg Heart Rhythm: Sinus Rhythm Technical Quality: Good Exam Date: 11/28/2023 9:47 AM Exam Location: Echo Lab Patient Status: Outpatient Admit Date: 11/28/2023 Staff Ordering Physician: Everton Saha DO Attending Provider: Everton Saha DO Exam Type: CA stress test treadmill w NM Study Info A treadmill exercise stress test was performed. History/Risk Factors Hypertension: Yes Dyslipidemia: Yes Summary 1. 1. Negative Chapin exercise stress test for ischemic ST changes by ECG criteria. 2. 2. Good functional capacity, achieving 10 METs of workload. 3. 3. Appropriate HR response to exercise. 4. 4. Appropriate HR recovery at 1 minute post exercise. 5. 5. Hypertensive response to exercise. 6. 6. Nuclear scan to follow and will be reportred separately. Please correlate with it. Protocol: Chapin Stress ECG Details Stage: REST Duration (min): 2 min : 22 sec Speed (mph): 0.0 Grade (%): 0 HR (bpm): 77 SBP (mmHg): 130 DBP (mmHg): 86 METS: --- Stage: REST Duration (min): 4 min : 0 sec Speed (mph): 0.0 Grade (%): 0 HR (bpm): 76 SBP (mmHg): 130 DBP (mmHg): 86 METS: --- Stage: STAGE 1 Duration (min): 1 min : 0 sec Speed (mph): 1.7 Grade (%): 10 HR (bpm): 95 SBP (mmHg): 130 DBP (mmHg): 86 METS: --- Stage: STAGE 1 Duration (min): 2 min : 0 sec Speed (mph): 1.7 Grade (%): 10 HR (bpm): 100 SBP (mmHg): 130 DBP (mmHg): 86 METS: --- Stage: STAGE 1 Duration (min): 3 min : 0 sec Speed (mph): 1.7 Grade (%): 10 HR (bpm): 99 SBP (mmHg): 130 DBP (mmHg): 86 METS: --- Stage: STAGE 2 Duration (min): 1 min : 0 sec Speed (mph): 2.5 Grade (%): 12 HR (bpm): 120 SBP (mmHg): 130 DBP (mmHg): 86 METS: --- Stage: STAGE 2 Duration (min): 2 min : 0 sec Speed (mph): 2.5 Grade (%): 12 HR (bpm): 127 SBP (mmHg): 130 DBP (mmHg): 86 METS: --- Stage: STAGE 2 Duration (min): 3 min : 0 sec Speed (mph): 2.5 Grade (%): 12 HR (bpm): 129 SBP (mmHg): 193 DBP (mmHg): 90 METS: --- Stage: STAGE 3 Duration (min): 1 min : 0 sec Speed (mph): 3.4 Grade (%): 14 HR (bpm): 140 SBP (mmHg): 193 DBP (mmHg): 90 METS: --- Stage: STAGE 3 Duration (min): 2 min : 0 sec Speed (mph): 3.4 Grade (%): 14 HR (bpm): 144 SBP (mmHg): 193 DBP (mmHg): 90 METS: --- Stage: STAGE 3 Duration (min): 3 min : 0 sec Speed (mph): 3.4 Grade (%): 14 HR (bpm): 153 SBP (mmHg): 214 DBP (mmHg): 100 METS: --- Stage: RECOVERY Duration (min): 0 min : 59 sec Speed (mph): 0.0 Grade (%): 0 HR (bpm): 123 SBP (mmHg): 214 DBP (mmHg): 100 METS: --- Stage: RECOVERY Duration (min): 1 min : 59 sec Speed (mph): 0.0 Grade (%): 0 HR (bpm): 102 SBP (mmHg): 174 DBP (mmHg): 96 METS: --- ---
--- NOTE | 2023-11-28 13:18 | WPDCARIOSTRE ---
Nuclear Stress Test INDICATIONS Indications: Chest pain PROCEDURE Procedure Performed: Myocardial Perf Spect-Multi Procedure: Patient underwent a Chapin exercise stress test and immediately was injected with 32.08 mCi of cardiolyte. Multiple tomographic images were obtained. These are of good quality. There is perfusion defects with stress imaging. A separate resting images were obtained after patient was injected with 9.9 mCi of cardiolyte. Multiple tomographic images were obtained. These are of good quality. There is perfusion defects with rest imaging. CONCLUSION Conclusion: 1. Normal myocardial perfusion imaging demonstrating no perfusion defects with stress or rest imaging. 2. No evidence of reversible ischemia. 3. Left ventriculogram demonstrate normal measured ejection fraction of 69% with no wall motion abnormalities. 4. TID score 1.04 is normal.
== END 2023-11-28 08:17 | disposition home or self-care (01) ==
LOC: CHSIMG 08:18
PROVIDERS: PCP Internal Medicine; Visit Provider Internal Medicine Cardiovascular Disease
DX: R07.9 Chest pain, unspecified (principal)
CPT/HCPCS: 78452; 93017; A9502

== ENCOUNTER 2024-04-04 08:19 | Outpatient (CLI) | payer OTHER, SELFPAY ==
[2024-04-04 08:40] LABS: Add Urine Microscopic? NO; Appearance Urine Clear (Clear); Basophils Absolute Auto 0.06 K/mm3 (0.00-0.10); Basophils Percent Auto 0.7 % (0.0-1.0); Bilirubin Urine Negative (Negative); Blood Urine Negative (Negative); Color Urine Light Yellow (Yellow); Eosinophils Absolute Auto 0.38 K/mm3 (0.02-0.50); Eosinophils Percent Auto 4.3 % (1.0-6.0); Glucose Urine UA Negative (Negative); Hematocrit 46.8 % (40.0-54.0); Immature Granulocyte Absolute 0.05 K/mm3 (0.00-0.00); Immature Granulocyte Percent A 0.6 % (0.0-0.0); Ketones Urine 1+ (Negative); Leukocyte Esterase Ur Negative LEU/UL (Negative); Lymphocytes Absolute Auto 2.36 K/mm3 (1.10-4.50); Lymphocytes Percent Auto 26.7 % (18.0-42.0); Mean Corpuscular HGB Conc 34.2 g/dL (32-36); Mean Corpuscular Hemoglobin 31.4 pg (27.0-31.0); Mean Corpuscular Volume 91.8 fL (78.0-102.0); Mean Platelet Volume 10.2 fl (8.7-11.0); Monocytes Absolute Auto 0.67 K/mm3 (0.10-0.90); Monocytes Percent Auto 7.6 % (2.0-11.0); Neutrophils Absolute Auto 5.31 K/mm3 (1.70-7.20); Neutrophils Percent Auto 60.1 % (50.0-70.0); Nitrate Urine Negative (Negative); Platelet Count Result 195 K/mm3 (150-420); Protein Urine Negative (Negative); Red Cell Distribution Width 12.9 % (11.6-14.4); Urobilinogen Urine 0.2 mg/dL (0.2-1.0); White Blood Count 8.8 K/mm3 (4.8-10.8)
[2024-04-04 08:49] LABS: Hemoglobin A1C 5.3 % (<5.7)
[2024-04-04 09:27] LABS: Alanine Aminotransferase 24 U/L (16-63); Alkaline Phosphatase 50 U/L (46-116); Anion Gap 9 mmol/L (4-12); Aspartate Amino Transferase 22 U/L (15-37); Bilirubin,Total 0.6 mg/dL (0.00-1.00); Blood Urea Nitrogen 22 mg/dL (7-18); Calcium 9.1 mg/dL (8.5-10.1); Carbon Dioxide 29 mmol/L (21-32); Chloride 100 mmol/L (98-108); Cholesterol 351 mg/dL (0-200); Creatine Kinase 207 U/L (39-308); Estimated Glomerular Filt Rate > 60; Glucose 102 mg/dL (70-99); HDL Direct 59 mg/dL (40-60); LDL Cholesterol Calculated 272 mg/dL (<130); Osmolality Calculated 289 mOsm/kg (285-295); Potassium 4.3 mmol/L (3.5-5.1); Sodium 138 mmol/L (136-145); Total Protein 6.9 g/dL (6.4-8.2); Triglycerides 101 mg/dL (0-150)
== END 2024-04-04 08:20 | disposition home or self-care (01) ==
LOC: CHSLAB 08:26
PROVIDERS: PCP Internal Medicine; Visit Provider Internal Medicine
DX: R73.01 Impaired fasting glucose (principal); E78.5 Hyperlipidemia, unspecified; I10 Essential (primary) hypertension; N39.0 Urinary tract infection, site not specified
CPT/HCPCS: 36415; 80053; 80061; 81003; 82550; 83036; 85025

== ENCOUNTER 2024-04-26 13:23 | Outpatient (CLI) | payer OTHER, SELFPAY ==
--- NOTE | ~2024-04-26 | US_ITS ---
EXAMINATION: US carotid duplex BI DATE: 04/26/2024 13:50 INDICATION: Right carotid bruit TECHNIQUE: Grayscale, color Doppler, and pulsed Doppler images of the cervical carotid arteries were obtained. The degree of vessel stenosis is placed in one of the following categories: normal, <50%, 5 0-69%, >=70% but less than near-occlusion, near-occlusion, or total occlusion. Note that percent sten osis relative to normal distal artery lumen diameter is indirectly measured from velocity measurement s as described by Mahad, et al. Radiology 2003; 229:340-346. COMPARISON: None. FINDINGS: RIGHT: The right common carotid artery (CCA) peak systolic velocity (PSV) is 121 cm/s. The right internal ca rotid artery (ICA) PSV is 72 cm/s. The right ICA end-diastolic velocity (EDV) is 37 cm/s. The right I CA/CCA PSV ratio is 0.6. Grayscale and color Doppler images yield an estimate of <50% diameter reduct ion from plaque in the ICA. The external carotid artery (ECA) PSV is 127 cm/s. There is antegrade alyx w in the right vertebral artery. LEFT: The left CCA PSV is 114 cm/s. The left ICA PSV is 66 cm/s. The left ICA EDV is 27 cm/s. The left ICA/ CCA PSV ratio is 0.6. Grayscale and color Doppler images yield an estimate of <50% diameter reduction from plaque in the ICA. The ECA PSV is 129 cm/s. There is antegrade flow in the left vertebral arter y. IMPRESSION: 1. <50% stenosis from minimal plaque in the right internal carotid artery. 2. <50% stenosis from minimal plaque in the left internal carotid artery. Reviewed, dictated and finalized at location B.
== END 2024-04-26 13:24 | disposition home or self-care (01) ==
LOC: CHSIMG 13:26
PROVIDERS: PCP Internal Medicine; Visit Provider Internal Medicine
DX: R09.89 Other specified symptoms and signs involving the circulatory and respiratory systems (principal); I65.23 Occlusion and stenosis of bilateral carotid arteries
CPT/HCPCS: 93880

== ENCOUNTER 2024-07-12 07:26 | Outpatient (CLI) | payer OTHER, SELFPAY ==
[2024-07-12 08:27] LABS: Alanine Aminotransferase 44 U/L (16-63); Albumin Level 3.9 g/dL (3.4-5.0); Alkaline Phosphatase 56 U/L (46-116); Anion Gap 9 mmol/L (4-12); Aspartate Amino Transferase 25 U/L (15-37); Bilirubin,Total 1.2 mg/dL (0.00-1.00); Blood Urea Nitrogen 20 mg/dL (7-18); Calcium 9.3 mg/dL (8.5-10.1); Carbon Dioxide 30 mmol/L (21-32); Chloride 102 mmol/L (98-108); Cholesterol 189 mg/dL (0-200); Estimated Glomerular Filt Rate > 60; Glucose 103 mg/dL (70-99); HDL Direct 64 mg/dL (40-60); LDL Cholesterol Calculated 109 mg/dL (<130); Osmolality Calculated 294 mOsm/kg (285-295); Potassium 4.2 mmol/L (3.5-5.1); Sodium 141 mmol/L (136-145); Total Protein 6.8 g/dL (6.4-8.2); Triglycerides 81 mg/dL (0-150)
== END 2024-07-12 07:27 | disposition home or self-care (01) ==
LOC: CHSLAB 07:28
PROVIDERS: PCP Internal Medicine; Visit Provider Internal Medicine
DX: E78.2 Mixed hyperlipidemia (principal)
CPT/HCPCS: 36415; 80053; 80061

== ENCOUNTER 2024-09-13 16:18 | Outpatient (CLI) | payer OTHER, MEDICAID, SELFPAY ==
--- NOTE | ~2024-09-13 | CT_ITS ---
EXAMINATION: CT lung screening DATE: 09/13/2024 16:32 INDICATION: Hx of nicotine dependence TECHNIQUE: Computed tomography (CT) of the chest was performed without intravenous contrast. Addition al 3D reconstructions utilizing coronal maximum intensity projection (MIP) were performed. Automated exposure control and iterative reconstruction technique were employed. The dose-length product was 10 0.36 mGy-cm. COMPARISON: 12/23/2022 FINDINGS: Lungs are clear with no pulmonary nodules, pneumonia, pulmonary edema or pleural effusion. Heart size normal. Atherosclerotic coronary artery calcification. No pericardial effusion. Thoracic aorta is no rmal in caliber. Multinodular goiter. No pathologically enlarged thoracic lymphadenopathy. And severe thoracic spondylosis with chronic mild anterior wedging of a few lower thoracic vertebral bodies. IMPRESSION: 1. Lung-RADS category 1: Negative. Continue annual screening with noncontrast low-dose chest CT in 12 months. Reviewed, dictated and finalized at location A. NICAL SUPPORT ANALYST IMPRESSION: 1. Lung-RADS category 1: Negative. Continue annual screening with noncontrast l ow-dose chest CT in 12 months.
--- OUTSIDE RECORDS SUMMARY | 2024-09-13 16:25 | XMS_ITS | Clinical Summary ---
Author Organization [facility] Address [facility] [place] [address] Care Team Providers Care Distillery Supervisor Name Role Phone Unavailable Primary Care Provider Unavailabl e Social History Tobacco Use Types Packs/Day Years Used Date Smoking Tobacco: Never Assessed Sex and Gender Information Value Date Recorded Sex Assigned at Not on file Legal Sex Male 9:58 PM CDT Gender Identity Not on file Sexual Orientation Not on file Plan of Treatment Health Maintenance Due Date Last Done Comments Colorectal Cancer Screening Colonoscopy (10 Years) 1961 Annual Physical 1964 Hepatitis C 12/10/1979 DTaP, Tdap and Td Vaccines ( 1 - Tdap) 1980 Zoster Vaccines (1 of 2) 12/10/2011 COVID-19 Vaccine ( - 2023-2 5 season) 2024 Influenza Adult (#1) 2024 RSV Immunization or 60+ Years (1 - 1-dose 75+ series) 2036 Meningococcal B Vaccine Aged Out No l onger eligible based on patient's age to complete this topic Meningococcal Vaccine Aged Out No jannet emilie eligible based on patient's age to complete this topic Pneumococcal Vaccine: Pediat rics (0 to 5 Years) and At-Risk Patients (6 to 64 Years) Aged Out No longer eligible b ased on patient's age to complete this topic RSV Immunizations Under 20 Months Aged Out No longer eligible based on patient's age to complete this topic
--- OUTSIDE RECORDS SUMMARY | 2024-09-13 16:25 | XMS_ITS | Referral Summary ---
Author Organization [facility] Address [address] [place] [address] Care Team Providers Care Auction Assistant Name Role Phone Rk Swenson MD Primary Care Provider [phone] Source Comments [facility],non-[facility] Affiliates and Associated Physician Practices is amultiple site organization consisting of ambulatory clinics and hospital sitesin [place], [place], [place] and [place]. This disclosure is being madepursuant to the Care Everywhere program and may not contain all information available regarding this patient. Last updated 18.[facility] Allergies Active Allergy Reactions Criticality Noted Date Comments Penicillins Rash Medium 10/05/2021 Medications * Be aware that medications may not be up to date on this document. Alwaysverify current medications with the patient. Medication Sig Dispensed Refills Start Date End Date Status pravastatin (PRAVACHOL) 40 MG tablet Take 40 mg by mouth at bedtime Active amLODIPine Besylate-Celecoxib 10-200 MG TABS Take 10 mg by mouth once daily Active montelukast (SINGULAIR) 10 MG tablet Take 10 mg by mouth at bedtime Active Dutasteride-Tamsulosin HCl 0.5-0.4 MG Take 1 tablet by mouth once daily Active cetirizine (ZYRTEC ALLERGY) 10 MG gel capsule Take 10 mg by mouth once daily Active Multiple Vitamins-Minerals (MULTI-VITAMIN GUMMIES PO) Take 1 tablet by mouth once daily Active [place]-3 Fatty Acids (FISH OIL) 1000 MG capsule Take 1,000 mg by mouth once daily Active Fluticasone Furoate 50 MCG/ACT AEPB Inhale 2 puffs by mouth as needed Active Active Problems Problem Noted Date Diagnosed Date History of total left knee replacement Social History Tobacco Use Types Packs/Day Years Used Date Smoking Tobacco: Never Smokeless Tobacco: Never Alcohol Use Standard Drinks/Week Comments Yes 0 (1 standard drink = 0.6 oz pur e alcohol) Sex and Gender Information Value Date Recorded Sex Assigned at Not on file Gender Identity Not on file Sexual Orientation Not on file Last Filed Vital Signs Vital Sign Reading Time Taken Comments Blood Pressure - - Pulse - - Temperature - - Respiratory Rate - - Oxygen Saturation - - Inhaled Oxygen Concentration - - Weight 87.1 kg (192 lb) 10/05/2021 3:34 PM ETIQUETTE TEACHER Height 170.2 cm (5' 7 ) 10/05/2021 3:34 PM ETIQUETTE TEACHER Body Mass Index 30.07 10/05/2021 3:34 PM ETIQUETTE TEACHER Plan of Treatment Not on file Care Teams Auction Assistant Relationship Specialty Start Date End Date Rk Swenson MD [address] [place] [id number] PCP - General 08/31/21
--- OUTSIDE RECORDS SUMMARY | 2024-09-13 16:25 | XMS_ITS | Clinical Summary ---
Author Organization [facility] Address [address] [place] [address] Phone Care Team Providers Care Lockstitch Coat Joiner Name Role Phone Rk Swenson MD Primary Care Provider [phone] Mikael CR MD, Courtney Unavailable [phone] Barry Hokpins MD Unavailable [phone] Allergies Active Allergy Reactions Criticality Noted Date Comments Penicillins Rash Medium 10/05/2021 Medications Incruse Ellipta 62.5 MCG/ACT AEROSOL POWDER, BREATH ACTIVATED INHALE 1 PUFF BY INHALATION ROUTE ONCE DAILY AT THE SAME TIME EACH DAY 3 Active Dulera 100-5 MCG/ACT Aerosol INHALE 2 PUFFS BY INHALATION ROUTE 2 TIMES PER DAY IN THE MORNING ANDEVENING 3 Active fluticasone (FLONASE) 50 MCG/ACT Suspension INSTILL 2 SPRAYS INTO EACH NOSTRIL AT BEDTIME 3 Active atorvastatin (LIPITOR) 40 MG Tablet Take 40 mg by mouth daily. 3 Active amLODIPine (NORVASC) 10 MG Tablet Take 10 mg by mouth daily. 3 Active albuterol 108 (90 Base) MCG/ACT Aerosol Solution TAKE 2 PUFFS BY MOUTH EVERY 4 TO 6 HOURS NEEDED 3 Active Omeprazole 20 MG Tablet Delayed Response Take by mouth. Activ e meloxicam (MOBIC) 15 MG Tablet 4 Active sildenafil citrate (VIAGRA) 100 MG TabletIndication s:Other male erectile dysfunction Take 1 Tablet by mouth as needed for Erectile Dysfunction. 25 Tablet 4 Active oxyCODONE-Acetam inophen (PERCOCET) 10-325 MG TabletIndication s:Nephrolithiasi s Take 1 Tablet by mouth every 8 hours as needed for Moderate or more severe pain. 20 Tablet 4 Active Active Problems No known active problems Social History Tobacco Use Types Packs/Day Years Used Date Smoking Tobacco: Unknown Tobacco Cessation:Counseling Given: No Sex and Gender Information Value Date Recorded Sex Assigned at Male 03/21/2023 8:45 AM CDT Legal Sex Male 10:02 PM CDT Gender Identity Male 03/21/2023 8:45 AM CDT Sexual Orientation Not on file Last Filed Vital Signs Vital Sign Reading Time Taken Comments Blood Pressure 128/87 09/12/2023 11:19 AM MANAGER SEARCH ENGINE Pulse 70 09/12/2023 11:19 AM MANAGER SEARCH ENGINE Temperature 36.6 C (97.8 F) 09/12/2023 11:19 AM MANAGER SEARCH ENGINE Respiratory Rate 19 09/12/2023 11:19 AM MANAGER SEARCH ENGINE Oxygen Saturation 96% 09/12/2023 11:19 AM MANAGER SEARCH ENGINE Inhaled Oxygen Concentration - - Weight 83.9 kg (185 lb) 09/12/2023 11:19 AM MANAGER SEARCH ENGINE Height 170.2 cm (5' 7 ) 09/12/2023 11:19 AM MANAGER SEARCH ENGINE Body Mass Index 28.98 09/12/2023 11:19 AM MANAGER SEARCH ENGINE Plan of Treatment Health Maintenance Due Date Last Done Comments Hepatitis C Virus (HCV) Screening 1960 Colonoscopy 2006 Colorectal Cancer Screening 2006 Cologuard 12/10/2011 Immunochemical Fecal Occult Blood 12/10/2011 Zoster Immunization (2 of 2) 08/24/2023 06/29/2023 Influenza Immunization (#1) 2024 11/0 04/2023, 04/15/2021, 06/22/2020, Additional history exists SARS-COV-2 Immunization (2 - 2023- season) 2024 11/13/2020 Respiratory Syncytial Virus (RSV) Immunization (Adult) (1 - 1-dose 75+ series) 2036 PSA Discussion Completed 03/21/2023 Pneumococcal Immunization (50+ years) Completed 06/29/2023 Pneumococcal Immunization Combined Discontinued 06/29/2023 DTaP/Tdap/Td Immunization Discontinued 07/01/2023 TdaP Immunization Completed 07/01/2023 Hepatitis B Immunization Aged Out No longer eligible based on patient's age to complete this topic Meningococcal Immunization (ACWY) Aged Out No longer eligible based on patient's age to complete this topic Rotavirus Immunization Aged Out No lo nger eligible based on patient's age to complete this topic Procedures Procedure Name Priority Date/Time Associated Diagnosis Comments PSA DIAGNOSTIC,TOTAL Routine 03/21/2023 9:39 AM CDT Benign prostatic hyperplasia with nocturia from Last 3 Months or Most Recently Relevant to Health Maintenance Results * PSA DIAGNOSTIC,TOTAL (03/21/2023 9:39 AM CDT) PSA, TOTAL (PROSTATIC SPECIFIC ANTIGEN) 0.58 <4.00 ng/mL 03/21/2023 11:29 AM CDT [facility] Blood Venipuncture / Unknown 03/21/2023 9:39 AM CDT 03/21/2023 10:30 AM CDT Narrative [facility] - 03/21/2023 11:29 AM CDT PSA NOTE: The PSA value should be used in conjunction with information available from clinical evaluation and other diagnostic procedures. The FIELD ARTILLERY RADAR OPERATOR Total PSA assay is a Chemiluminescent Microparticle Immunoassay (CMIA) for the quantitative determination of total PSA (both free PSA and PSA complexed to [id number]) in human serum. Shena Youssef III, MD CHEMISTRY ORDERABLES Fin al Result [facility] [address] [place] [address] from Last 3 Months or Most Recently Relevant to Health Maintenance Insurance MEDICAID [employer] Care Teams Lockstitch Coat Joiner Relationship Specialty Start Date End Date Rk Swneson MD [address] [place] [address] PCP - General Internal Medicine 08/10/23 Shena Youssef III, MD [address] [place] [address] Consulting Physician Urology 03/21/23 Barry Hopkins MD [address] [address] Consulting Physician Urology 09/12/23
--- OUTSIDE RECORDS SUMMARY | 2024-09-13 16:25 | XMS_ITS | CONTINUITY OF CARE DOCUMENT ---
Author Name yovany pedroza Address Unknown Organization [place] [facility] Address [address] [place] [address] [address] [place] [address] Phone [phone] Care Team Providers Care Human Factors Specialist Name Role Phone Neno ROSEN, Philipp Unavailable [phone] Philipp Lazcano MD Unavailable GINO CHAPA MD Unavailable [phone] INSURANCE PROVIDERS Payer name Policy type / Coverage type Rossy red libertarian ID JENNY MEDICAID (2) Medicaid [id number]
--- OUTSIDE RECORDS SUMMARY | 2024-09-13 16:25 | XMS_ITS | Clinical Summary ---
Author Organization [facility] Address [address] [place] [address] Care Team Providers Care Cosmetic Counselor Name Role Phone Rk Swenson MD Primary Care Provider [phone] Source Comments [facility] Affiliates and Associated Physician Practices is amultiple site organization consisting of ambulatory clinics and hospital sitesin [place], [place], [place] and [place]. This disclosure is being madepursuant to the Care Everywhere program and may not contain all information available regarding this patient. Last updated 18.[facility] [employer] Allergies Active Allergy Reactions Criticality Noted Date [...] 1 tablet by mouth once daily Active [place]-3 Fatty Acids (FISH OIL) 1000 MG capsule [...] 87.1 kg (192 lb) 10/05/2021 3:34 PM FRAMING MECHANIC Height 170.2 cm (5' 7 ) 10/05/2021 3:34 PM FRAMING MECHANIC Body Mass Index 30.07 10/05/2021 3:34 PM FRAMING MECHANIC Plan of Treatment Health Maintenance Due Date Last Done Comments COLOGUARD (AGES 45-75) - COL ON CA SCREENING 1961 COLON MONITORING 1961 COLONOSCOPY - COLON CA SCREENING 1961 CT COLONOGRAPHY - COLON CA SCREENING 1961 Colorectal Cancer Screening 1961 FIT - COLON CA SCREENING 1961 FLEX SIG - COLON CA SCREENING 1961 HIV SCREENING 1976 HEPATITIS C SCREENING 12/05/1979 DTAP/TDAP/TD VACCINES (1 - Tdap) 1980 PNEUMOCOCCAL VACCINE 50+ (1 of 1 - PCV) 12/10/2011 ZOSTER VACCINE (1 of 2) 12/10/2011 SCREENING FOR DIABETES 10/05/2021 COVID-19 VACCINE ( - 2023-2 5 season) 2024 INFLUENZA VACCINE (#1) 2024 DEPRESSION SCREENING 08/08/2024 Respiratory Syncytial Virus (RSV) Vaccine Pt: or over 60 yrs (1 - 1-dose 75+ series) 2036 HEPATITIS B VACCINE Aged Out No longe r eligible based on patient's age to complete this topic HIB VACCINE Aged Out No longer eligi ble based on patient's age to complete this topic HPV VACCINE Aged Out No longer eligi ble based on patient's age to complete this topic MENINGOCOCCAL (Group B) VACCINE Aged Out No longer eligible based on patient's age to complete this topic MENINGOCOCCAL VACCINE Aged Out No jannet emilie eligible based on patient's age to complete this topic PNEUMOCOCCAL VACCINE Aged Out No long er eligible based on patient's age to complete this topic Care Teams Cosmetic Counselor Relationship Specialty Start Date End Date Rk Swenson MD [address] [place] [address] PCP - General 08/31/21
--- OUTSIDE RECORDS SUMMARY | 2024-09-13 16:25 | XMS_ITS | Patient Health Summary ---
Author Organization [facility] Address [address] [place] [address] Care Team Providers Care Records Associate Name Role Phone Rk Swenson MD Primary Care Provider [phone] Note from [facility],non-owned Affiliates and Associated Physician Practices is amultiple site organization consisting of ambulatory clinics and hospital sitesin [place], [place], [place] and [place]. This disclosure is being madepursuant to the Care Everywhere program and may not contain all information available regarding this patient. Last updated 18.[facility] Allergies * Penicillins(Rash) -Medium Criticality Medications * Be aware that medications may not be up to date on this document. Alwaysverify current medications with the patient. * pravastatin (PRAVACHOL) 40 MG tablet Take 40 mg by mouth at bedtime * amLODIPine Besylate-Celecoxib 10-200 MG TABS Take 10 mg by mouth once daily * montelukast (SINGULAIR) 10 MG tablet Take 10 mg by mouth at bedtime * Dutasteride-Tamsulosin HCl 0.5-0.4 MG Take 1 tablet by mouth once daily * cetirizine (ZYRTEC ALLERGY) 10 MG gel capsule Take 10 mg by mouth once daily * Multiple Vitamins-Minerals (MULTI-VITAMIN GUMMIES PO) Take 1 tablet by mouth once daily * [place]-3 Fatty Acids (FISH OIL) 1000 MG capsule Take 1,000 mg by mouth once daily * Fluticasone Furoate 50 MCG/ACT AEPB Inhale 2 puffs by mouth as needed Active Problems Problem Noted Date Diagnosed Date [...] 87.1 kg (192 lb) 10/05/2021 3:34 PM PIPE PROCESSOR Height 170.2 cm (5' 7 ) 10/05/2021 3:34 PM PIPE PROCESSOR Body Mass Index 30.07 10/05/2021 3:34 PM PIPE PROCESSOR Procedures * [place] EAR MICROSCOPY EXAMINATION(Performed 10/05/2021) Performed for Sensorineural hearing loss (SNHL) of both ears Results * [place] EAR MICROSCOPY EXAMINATION (10/05/2021 4:24 PM PIPE PROCESSOR) Narrative Jus Gonzalez MD - 10/05/2021 4:24 PM PIPE PROCESSOR Jus Gonzalez MD 10/05/2021 4:26 PM Procedure: Microscopic exam of the ear(s) Findings: See main note. Procedure in detail: The binocular operating microscope and and ear speculum were used to exam the ear(s). The patient tolerated the procedure well and there was no bleeding. Jus Gonzalez MD Jus Gonzalez MD PROCEDURE/MINOR SIA GICAL ORDERABLES Care Teams Records Associate Relationship Specialty Start Date End Date Rk Swenson MD [address] [place] [address] PCP - General 08/31/21
== END 2024-09-13 16:19 | disposition home or self-care (01) ==
LOC: CHSIMG 16:23
PROVIDERS: PCP Internal Medicine; Visit Provider Internal Medicine
DX: Z12.2 Encounter for screening for malignant neoplasm of respiratory organs (principal); Z87.891 Personal history of nicotine dependence
CPT/HCPCS: 71271

== ENCOUNTER 2024-10-25 08:47 | Outpatient (CLI) | payer OTHER, SELFPAY ==
--- OUTSIDE RECORDS SUMMARY | 2024-10-25 09:00 | XMS_ITS | CONTINUITY OF CARE DOCUMENT ---
Author Name yovany pedroza Address Unknown Organization [place] [facility] Address [address] [place] [address] [address] [place] [address] Phone [phone] Care Team Providers Care Open Hearth Stockyard Supervisor Name Role Phone Neno ROSEN, Philipp Unavailable Philipp Lazcano MD Unavailable [phone] GINO CHAPA MD Unavailable INSURANCE PROVIDERS Payer name Policy type / Coverage type Rossy red green party ID JENNY MEDICAID (2) Medicaid [id number]
--- OUTSIDE RECORDS SUMMARY | 2024-10-25 09:00 | XMS_ITS | Clinical Summary ---
Author Organization [facility] Address [address] [place] [address] Phone Care Team Providers Care Picture Frame Maker Name Role Phone Rk Swenson MD Primary Care Provider [phone] Mikael CR MD, Courtney Unavailable [phone] Barry Hopkins MD Unavailable [phone] Allergies Active Allergy Reactions Criticality Noted Date [...] Comments Blood Pressure 128/87 09/12/2023 11:19 AM TRIM AND BURR OPERATOR Pulse 70 09/12/2023 11:19 AM TRIM AND BURR OPERATOR Temperature 36.6 C (97.8 F) 09/12/2023 11:19 AM TRIM AND BURR OPERATOR Respiratory Rate 19 09/12/2023 11:19 AM TRIM AND BURR OPERATOR Oxygen Saturation 96% 09/12/2023 11:19 AM TRIM AND BURR OPERATOR Inhaled Oxygen Concentration - - Weight 83.9 kg (185 lb) 09/12/2023 11:19 AM TRIM AND BURR OPERATOR Height 170.2 cm (5' 7 ) 09/12/2023 11:19 AM TRIM AND BURR OPERATOR Body Mass Index 28.98 09/12/2023 11:19 AM TRIM AND BURR OPERATOR Plan of Treatment Health Maintenance Due Date [...] 0.58 <4.00 ng/mL 03/21/2023 11:29 AM CDT [facility] Blood Venipuncture / Unknown 03/21/2023 9:39 AM CDT 03/21/2023 10:30 AM CDT Narrative [facility] - 03/21/2023 11:29 AM CDT PSA NOTE: The PSA value should be used in conjunction with information available from clinical evaluation and other diagnostic procedures. The DEALERSHIP GENERAL MANAGER Total PSA assay is a Chemiluminescent Microparticle Immunoassay (CMIA) for the quantitative determination of total PSA (both free PSA and PSA complexed to [id number]) in human serum. Shena Youssef III, MD CHEMISTRY ORDERABLES Fin al Result [facility] [address] [place] [address] from Last 3 Months or Most Recently Relevant to Health Maintenance Insurance MEDICAID [employer] Care Teams Picture Frame Maker Relationship Specialty Start Date End Date Rk Swenson MD [address] [place] [address] PCP - General Internal Medicine 08/10/23 Shena Youssef III, MD [address] [place] [address] Consulting Physician Urology 03/21/23 Barry Hopkins MD [address] [address] Consulting Physician Urology 09/12/23
--- OUTSIDE RECORDS SUMMARY | 2024-10-25 09:00 | XMS_ITS | Clinical Summary ---
Author Organization [facility] Address [facility] [place] [address] Care Team Providers Care Bench Worker Name Role Phone Unavailable Primary Care Provider [...]
--- OUTSIDE RECORDS SUMMARY | 2024-10-25 09:00 | XMS_ITS | Clinical Summary ---
Author Organization [facility] Address [address] [place] [address] Care Team Providers Care Apprentice Stylist Name Role Phone Rk Swenson MD Primary Care Provider [phone] Source Comments [facility],non-[facility] Affiliates and Associated Physician Practices is amultiple site organization consisting of ambulatory clinics and hospital sitesin [place], [place], [place] and [place]. This disclosure is being madepursuant to the Care Everywhere program and may not contain all information available regarding this patient. Last updated 18.[facility] [employer] Allergies Active Allergy Reactions Criticality Noted Date [...] 1 tablet by mouth once daily Active [place]-3 Fatty Acids (FISH OIL) 1000 MG capsule [...] 87.1 kg (192 lb) 10/05/2021 3:34 PM SENIOR SALES ASSISTANT Height 170.2 cm (5' 7 ) 10/05/2021 3:34 PM SENIOR SALES ASSISTANT Body Mass Index 30.07 10/05/2021 3:34 PM SENIOR SALES ASSISTANT Plan of Treatment Health Maintenance Due Date [...] to complete this topic MENINGOCOCCAL (Group B) VACC INE SHARED DECISION-MAKING Aged Out No longer eligibl e based on patient's age to complete this topic MENINGOCOCCAL GROUPS A/C/Y/W VACCINE Aged Out No longer eligible b ased on patient's age to complete this topic PNEUMOCOCCAL VACCINE Aged Out No long er eligible based on patient's age to complete this topic Care Teams Apprentice Stylist Relationship Specialty Start Date End Date Rk Swenson MD [address] [place] [id number] PCP - General 08/31/21
[2024-10-25 09:06] LABS: Hematocrit 47.1 % (40.0-54.0); Hemoglobin 15.4 g/dL (14.0-18.0); Mean Corpuscular HGB Conc 32.7 g/dL (32-36); Mean Corpuscular Hemoglobin 30.3 pg (27.0-31.0); Mean Corpuscular Volume 92.7 fL (78.0-102.0); Platelet Count Result 194 K/mm3 (150-420); Red Blood Count 5.08 M/mm3 (4.70-6.10); Red Cell Distribution Width 13.1 % (11.6-14.4)
[2024-10-25 09:10] LABS: Add Urine Microscopic? NO; Appearance Urine Clear (Clear); Bilirubin Urine Negative (Negative); Blood Urine Negative (Negative); Color Urine Yellow (Yellow); Glucose Urine UA Negative (Negative); Ketones Urine 1+ (Negative); Leukocyte Esterase Ur Negative (Negative); Nitrate Urine Negative (Negative); Protein Urine Negative (Negative); Specific Grav Ur 1.025 (1.010-1.020); Urobilinogen Urine 0.2 mg/dL (0.2-1.0)
[2024-10-25 10:12] LABS: Alanine Aminotransferase 37 U/L (16-63); Albumin Level 4.1 g/dL (3.4-5.0); Alkaline Phosphatase 66 U/L (46-116); Anion Gap 8 mmol/L (4-12); Aspartate Amino Transferase 28 U/L (15-37); Bilirubin,Total 1.2 mg/dL (0.00-1.00); Blood Urea Nitrogen 22 mg/dL (7-18); Calcium 9.1 mg/dL (8.5-10.1); Carbon Dioxide 28 mmol/L (21-32); Chloride 106 mmol/L (98-108); Cholesterol 198 mg/dL (0-200); Creatine Kinase 286 U/L (39-308); Estimated Glomerular Filt Rate > 60; Free T3 3.09 pg/mL (2.18-3.98); Free T4 Free Thyroxine 0.76 ng/dL (0.76-1.46); Glucose 99 mg/dL (70-99); HDL Direct 62 mg/dL (40-60); LDL Cholesterol Calculated 113 mg/dL (<130); Osmolality Calculated 297 mOsm/kg (285-295); Potassium 4.2 mmol/L (3.5-5.1); Sodium 142 mmol/L (136-145); Thyroid Stimulating Hormone 0.74 uIU/mL (0.36-3.74); Triglycerides 117 mg/dL (0-150)
== END 2024-10-25 08:48 | disposition home or self-care (01) ==
LOC: CHSLAB 08:49
PROVIDERS: PCP Internal Medicine; Visit Provider Internal Medicine
DX: I10 Essential (primary) hypertension (principal); E78.2 Mixed hyperlipidemia; R73.01 Impaired fasting glucose; R21 Rash and other nonspecific skin eruption
CPT/HCPCS: 36415; 80053; 80061; 81003; 82550; 83036; 84153; 84439; 84443; 84481; 85027; G0103

== ENCOUNTER 2024-11-05 15:21 | Outpatient (CLI) | payer OTHER, SELFPAY ==
--- NOTE | ~2024-11-05 | XR_ITS ---
XR shoulder LT min 2V 11/05/2024 15:32 Indication: Left shoulder pain Procedure: 4 views left shoulder Comparison: No prior studies for comparison. Findings: There is moderate polyarticular osteoarthritis. There is anatomic alignment. No fracture or traumatic malalignment. No soft tissue abnormality. No foreign bodies. Impression: 1: Moderate polyarticular osteoarthritis of the left shoulder. Reviewed, dictated and finalized at location A. Impression: 1: Moderate polyarticular osteoarthritis of the left shoulder.
--- OUTSIDE RECORDS SUMMARY | 2024-11-05 16:52 | XMS_ITS | CONTINUITY OF CARE DOCUMENT ---
Author Name yovany pedroza Address Unknown Organization [place] [facility] Address [address] [place] [address] [address] [place] [address] Phone [phone] Care Team Providers Care Fry Cook Name Role Phone Neno ROSEN, Philipp Unavailable [phone] Philipp Lazcano MD Unavailable [phone] GINO CHAPA MD Unavailable INSURANCE PROVIDERS Payer name Policy type / Coverage type Rossy red republican ID JENNY MEDICAID (2) Medicaid [id number]
--- OUTSIDE RECORDS SUMMARY | 2024-11-05 16:52 | XMS_ITS | Clinical Summary ---
Author Organization [facility] Address [facility] [place] [address] Care Team Providers Care Water Treatment Plant Mechanic Name Role Phone Unavailable Primary Care Provider [...]
--- OUTSIDE RECORDS SUMMARY | 2024-11-05 16:52 | XMS_ITS | Clinical Summary ---
Author Organization [facility] Address [address] [place] [address] Care Team Providers Care Ballistics Expert Forensic Name Role Phone Rk Swenson MD Primary Care Provider [phone] Source Comments [facility],non-[facility] Affiliates and Associated Physician Practices is amultiple site organization consisting of ambulatory clinics and hospital sitesin [place], [place], [place] and [place]. This disclosure is being madepursuant to the Care Everywhere program and may not contain all information available regarding this patient. Last updated 18.[facility] [employer] Allergies Active Allergy Reactions Criticality Noted Date [...] 1 tablet by mouth once daily Active [place]-3 Fatty Acids (FISH OIL) 1000 MG capsule [...] 87.1 kg (192 lb) 10/05/2021 3:34 PM OCCUPATIONAL THERAPIST'S ASSISTANT Height 170.2 cm (5' 7 ) 10/05/2021 3:34 PM OCCUPATIONAL THERAPIST'S ASSISTANT Body Mass Index 30.07 10/05/2021 3:34 PM OCCUPATIONAL THERAPIST'S ASSISTANT Plan of Treatment Health Maintenance Due [...] age to complete this topic Care Teams Ballistics Expert Forensic Relationship Specialty Start Date End Date Rk Swenson MD [address] [place] [id number] PCP - General 08/31/21
--- OUTSIDE RECORDS SUMMARY | 2024-11-05 16:52 | XMS_ITS | Clinical Summary ---
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 Name Role Phone Rk Swenson MD Primary Care Provider [phone] Mikael CR MD, Courtney Unavailable [phone] Barry Hopkins MD Unavailable [phone] Allergies Active Allergy Reactions Criticality Noted Date [...] Comments Blood Pressure 128/87 09/12/2023 11:19 AM BRICK CHIMNEY SUPERVISOR Pulse 70 09/12/2023 11:19 AM BRICK CHIMNEY SUPERVISOR Temperature 36.6 C (97.8 F) 09/12/2023 11:19 AM BRICK CHIMNEY SUPERVISOR Respiratory Rate 19 09/12/2023 11:19 AM BRICK CHIMNEY SUPERVISOR Oxygen Saturation 96% 09/12/2023 11:19 AM BRICK CHIMNEY SUPERVISOR Inhaled Oxygen Concentration - - Weight 83.9 kg (185 lb) 09/12/2023 11:19 AM BRICK CHIMNEY SUPERVISOR Height 170.2 cm (5' 7 ) 09/12/2023 11:19 AM BRICK CHIMNEY SUPERVISOR Body Mass Index 28.98 09/12/2023 11:19 AM BRICK CHIMNEY SUPERVISOR Plan of Treatment Health Maintenance Due Date [...] 0.58 <4.00 ng/mL 03/21/2023 11:29 AM CDT [facility] Blood Venipuncture / Unknown 03/21/2023 9:39 AM CDT 03/21/2023 10:30 AM CDT Narrative [facility] - 03/21/2023 11:29 AM CDT PSA NOTE: The PSA value should be used in conjunction with information available from clinical evaluation and other diagnostic procedures. The POWER SHEAR OPERATOR Total PSA assay is a Chemiluminescent Microparticle Immunoassay (CMIA) for the quantitative determination of total PSA (both free PSA and PSA complexed to [id number]) in human serum. 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
== END 2024-11-05 15:22 | disposition home or self-care (01) ==
LOC: CHSIMG 15:23
PROVIDERS: PCP Internal Medicine; Visit Provider Internal Medicine
DX: M25.512 Pain in left shoulder (principal); M19.012 Primary osteoarthritis, left shoulder
CPT/HCPCS: 73030

== ENCOUNTER 2024-11-09 15:29 | Outpatient (RCR) | payer OTHER, MEDICAID, SELFPAY ==
--- NOTE | 2024-11-09 15:59 | OPREHPOC ---
Outpatient Therapy Plan of Care This is a Multidisciplinary Plan of Care that may contain components documented by all disciplines (PT, OT, and ST.) PT Problem 1 PT Problem #1 Knowledge Deficit PT Goal 1 Goal / Goal Update independent and compliant with HEP Target Visit 4 PT Problem 2 PT Problem #2 Pain PT Goal 1 Goal / Goal Update decrease pain at worst to 5/10 or less Target Visit 8 PT Problem 3 PT Problem #3 Impaired Range of Motion PT Goal 1 Goal / Goal Update 150 active L shoulder flex or better 140 active L shoulder abd or better 75 active L shoulder ER or better 65 active L shoulder IR or better Target Visit 8 PT Problem 4 PT Problem #4 Impaired Strength PT Goal 1 Goal / Goal Update 4+/5 or better gross L shoulder strength 5/5 gross L elbow strength Target Visit 8 PT Problem 5 PT Problem #5 Impaired Functional Mobility PT Goal 1 Goal / Goal Update quick dash to display less than 20% functional deficits patient to get dressed including put on jacket without pain in the L shoulder patient to reach his lower thoracic spine and shirt collar with functional L UE reach Target Visit 8
--- NOTE | 2024-11-09 15:59 | PTOPEVAL1 ---
Assessment and note entered by JT File, PT Evaluation Information Assessment Status Evaluation ICD-10 Condition Codes (PT) Pain in left shoulder M25.512 Onset 11/06/24 Subjective Information patient reports he is having pain in the L shoulder. he reports he has been having pain in the L shoulder for about 4-5 months. he reports no injury to the L shoulder. he reports it is steadily getting worse. he reports he struggles to put his coat on with the L arm. he reports he had an xray of the L shoulder last week, and reports he was told he has arthritis. he reports he is also unable to lift it up to his side, and struggles to sleep through the night. Reported Pain Level Pain Score 2: Self Report Assessment PT Clinical Summary mr. velazquez is a 63 yo man who presents to skilled PT services for evaluation and treatment of L shoulder pain. he displays decreased rom, L shoulder and UE weakness, grinding and crepitus in the L shoulder, and pain and limited functional use. his signs and symptoms are consistent with L shoulder OA and RTC arthropathy. continued skilled PT is indicated to improve his objective/ functional deficits and progress towards a return to his prior level functional activity performance /quality of life. Plan of Care Interventions Electrical Stimulation,Hot Pack/Cold Pack,Manual Therapy,Neuro Re-education,Patient/Caregiver Education,Therapeutic Activities,Therapeutic Exercise PT Services Indicated Yes Treatment Frequency and 2x weekly for 8 visits Duration These treatments will address the objective and functional deficits as defined above. The patient will be advanced safely and appropriately in order for the patient to progress towards his/her prior level of function. Additional exercises will be introduced and as well as a comprehensive home exercise program upon discharge, if needed, ?to ensure carryover of functional gains achieved in the clinic. This treatment plan has been reviewed and agreement upon by the patient.
--- NOTE | 2024-12-05 16:10 | OPREHPOC ---
Outpatient Therapy Plan of Care This is a Multidisciplinary Plan of Care that may contain components documented by all disciplines (PT, OT, and ST.) PT Problem 1 PT Problem #1 Knowledge Deficit PT Goal 1 Goal / Goal Update independent and compliant with HEP Target Visit 4 Progress Met PT Problem 2 PT Problem #2 Pain PT Goal 1 Goal / Goal Update decrease pain at worst to 5/10 or less. met for L shoulder Target Visit 10 Progress Partially Met PT Problem 3 PT Problem #3 Impaired Range of Motion PT Goal 1 Goal / Goal Update 150 active L shoulder flex or better. met 140 active L shoulder abd or better. met 75 active L shoulder ER or better. met 65 active L shoulder IR or better Target Visit 10 Progress Partially Met PT Problem 4 PT Problem #4 Impaired Strength PT Goal 1 Goal / Goal Update 4+/5 or better gross L shoulder strength 5/5 gross L elbow strength Target Visit 8 Progress Met PT Problem 5 PT Problem #5 Impaired Functional Mobility PT Goal 1 Goal / Goal Update quick dash to display less than 20% functional deficits patient to get dressed including put on jacket without pain in the L shoulder. met patient to reach his lower thoracic spine and shirt collar with functional L UE reach. partially met Target Visit 10
--- NOTE | 2024-12-05 16:10 | PTOPREEVAL ---
Assessment and note entered by JT File, PT Evaluation Information Assessment Status Re-evaluation ICD-10 Condition Codes (PT) Pain in left shoulder M25.512 Onset 11/06/24 Subjective Information patient reports the shoulder is better, but the L upper neck/shoulder is hurting today. he reports this is generally brought on by bouts of increased pain in the shoulder from activity. he reports the shoulder will hurts the most when reaching out away from his body and trying to pull towards him . he also reports anterior L shoulder pain with trying to reach behind him and pull up his pants. Reported Pain Level Pain Score 1,5: Self Report Assessment PT Clinical Summary mr. velazquez presents to skilled PT for his 8th skilled PT visit. he presents today with improved L shoulder rom, improved L shoulder strength, and decreased L shoulder pain. however, the L neck/UT area is tender and likely has a mm strain from increased L shoulder/UE activity. he has made great progress towards goals, and without the L UT pain/symptoms he would be ready to DC today. instead, we will continue skilled PT with focus on reduction of L UT symptoms and further improvement of L shoulder therapy to achieve all goals. Plan of Care Interventions Electrical Stimulation,Hot Pack/Cold Pack,Manual Therapy,Neuro Re-education,Patient/Caregiver Education,Therapeutic Activities,Therapeutic Exercise PT Services Indicated Yes Treatment Frequency and continue skilled PT 2x weekly for 2 more visits Duration These treatments will address the objective and functional deficits as defined above. The patient will be advanced safely and appropriately in order for the patient to progress towards his/her prior level of function. Additional exercises will be introduced and as well as a comprehensive home exercise program upon discharge, if needed, ?to ensure carryover of functional gains achieved in the clinic. This treatment plan has been reviewed and agreement upon by the patient.
== END 2024-12-05 20:00 | disposition home or self-care (01) ==
LOC: CHSPT 15:29
PROVIDERS: PCP Internal Medicine; Visit Provider Internal Medicine
DX: M25.512 Pain in left shoulder (principal)
CPT/HCPCS: 97014; 97110; 97112; 97140; 97150; 97161; G0283

== ENCOUNTER 2025-05-29 08:11 | Outpatient (CLI) | payer OTHER, MEDICAID, SELFPAY ==
[2025-05-29 08:27] LABS: Hematocrit 48.0 % (40.0-54.0); Hemoglobin 15.7 g/dL (14.0-18.0); Mean Corpuscular HGB Conc 32.7 g/dL (32-36); Mean Corpuscular Hemoglobin 31.3 pg (27.0-31.0); Mean Corpuscular Volume 95.8 fL (78.0-102.0); Platelet Count Result 194 K/mm3 (150-420); Red Blood Count 5.01 M/mm3 (4.70-6.10); White Blood Count 8.4 K/mm3 (4.8-10.8)
--- OUTSIDE RECORDS SUMMARY | 2025-05-29 08:27 | XMS_ITS | Clinical Summary ---
Author Organization [facility] Address [address] [place] [address] Care Team Providers Care Rn Hyperbaric Name Role Phone Rk Swenson MD Primary Care Provider [phone] Source Comments [facility],non-[facility] Affiliates and Associated Physician Practices is amultiple site organization consisting of ambulatory clinics and hospital sitesin [place], [place], [place] and [place]. This disclosure is being madepursuant to the Care Everywhere program and may not contain all information available regarding this patient. Last updated 18.[facility] Allergies Active Allergy Reactions Criticality Noted Date Comments Penicillins Rash Medium 10/05/2021 Medications * Be aware that medications may not be up to date on this document. Alwaysverify current medications with the patient. pravastatin (PRAVACHOL) 40 MG tablet Take 40 mg by mouth at bedtime Active amLODIPine Besylate-Celeco xib 10-200 MG TABS Take 10 mg by mouth once daily Active montelukast (SINGULAIR) 10 MG tablet Take 10 mg by mouth at bedtime Active Dutasteride-Palma sulosin HCl 0.5-0.4 MG Take 1 tablet by mouth once daily Active cetirizine (ZYRTEC ALLERGY) 10 MG gel capsule Take 10 mg by mouth once daily Active Multiple Vitamins-Minera ls (MULTI-VITAMIN GUMMIES PO) Take 1 tablet by mouth once daily Active [place]-3 Fatty Acids (FISH OIL) 1000 MG capsule [...] at Not on file Legal Sex Male 2:16 PM THEATRICAL AGENT Gender Identity Not on file Sexual Orientation Not on file Last Filed Vital Signs Vital Sign Reading Time Taken Comments Blood Pressure - - Pulse - - Temperature - - Respiratory Rate - - Oxygen Saturation - - Inhaled Oxygen Concentration - - Weight 87.1 kg (192 lb) 10/05/2021 3:34 PM THEATRICAL AGENT Height 170.2 cm (5' 7) 10/05/2021 3:34 PM THEATRICAL AGENT Body Mass Index 30.07 10/05/2021 3:34 PM THEATRICAL AGENT Plan of Treatment Health Maintenance Due Date [...] of 2) 12/10/2011 SCREENING FOR DIABETES 10/05/2021 DEPRESSION SCREENING 08/08/2024 COVID-19 VACCINE (1 - 2023-2 5 season) 2025 INFLUENZA VACCINE (#1) 2025 Respiratory Syncytial Virus (RSV) Vaccine Pt: or [...] on patient's age to complete this topic Insurance [facility] Care Teams Rn Hyperbaric Relationship Specialty Start Date End Date Rk Swenson MD [address] [place] [address] PCP - General 08/31/21
--- OUTSIDE RECORDS SUMMARY | 2025-05-29 08:27 | XMS_ITS | Clinical Summary ---
Author Organization [facility] Address [address] [place] [address] Phone Care Team Providers Care Inspector Precision Assembly Name Role Phone Rk Swenson MD Primary Care Provider [phone] Mikael CR MD, Courtney Unavailable [phone] Barry Hopkins MD Unavailable [phone] Allergies Active Allergy Reactions Criticality Noted Date [...] Comments Blood Pressure 128/87 09/12/2023 11:19 AM SENIOR MASTER SCHEDULER Pulse 70 09/12/2023 11:19 AM SENIOR MASTER SCHEDULER Temperature 36.6 C (97.8 F) 09/12/2023 11:19 AM SENIOR MASTER SCHEDULER Respiratory Rate 19 09/12/2023 11:19 AM SENIOR MASTER SCHEDULER Oxygen Saturation 96% 09/12/2023 11:19 AM SENIOR MASTER SCHEDULER Inhaled Oxygen Concentration - - Weight 83.9 kg (185 lb) 09/12/2023 11:19 AM SENIOR MASTER SCHEDULER Height 170.2 cm (5' 7) 09/12/2023 11:19 AM SENIOR MASTER SCHEDULER Body Mass Index 28.98 09/12/2023 11:19 AM SENIOR MASTER SCHEDULER Plan of Treatment Upcoming Encounters Date Type Department Care Team (Late st Contact Info) Description 06/03/2025 8:00 AM CDT Office Visit [facility] [address] [place] [address] Jose Carlos Upton MD [address] [address] Health Maintenance Due Date Last Done Comments Hepatitis C Virus (HCV) Screening 1961 Cologuard 2006 Colonoscopy 2006 Colorectal Cancer Screening 2006 Immunochemical Fecal Occult Blood 2006 Zoster Immunization (2 of 2) 08/24/2023 06/29/2023 Influenza Immunization (#1) 2025 11/0 04/2023, 04/15/2021, 06/22/2020, Additional history exists SARS-COV-2 Immunization ( - 2024- season) 2025 11/13/2020 Respiratory Syncytial Virus (RSV) Immunization (Adult) (1 - 1-dose 75+ series) 2036 PSA Discussion Completed 03/21/2023 Pneumococcal Immunization (50+ years) Completed 06/29/2023 Pneumococcal Immunization Combined Discontinued 06/29/2023 DTaP/Tdap/Td Immunization Discontinued 07/01/2023 TdaP Immunization Completed 07/01/2023 Hepatitis B Immunization Aged Out No longer eligible based on patient's age to complete this topic Human Papillomavirus (HPV) Immunization Aged Out No longer eligible based [...] 0.58 <4.00 ng/mL 03/21/2023 11:29 AM CDT [facility] Blood Venipuncture / Unknown 03/21/2023 9:39 AM CDT 03/21/2023 10:30 AM CDT Narrative [facility] - 03/21/2023 11:29 AM CDT PSA NOTE: The PSA value should be used in conjunction with information available from clinical evaluation and other diagnostic procedures. The LIQUOR ESTABLISHMENT MANAGER Total PSA assay is a Chemiluminescent Microparticle Immunoassay (CMIA) for the quantitative determination of total PSA (both free PSA and PSA complexed to [id number]) in human serum. us Shena Youssef III, MD CHEMISTRY ORDERABLES Fin al Result [facility] [address] [place] [address] from Last 3 Months or Most Recently Relevant to Health Maintenance Insurance MEDICAID [facility] [employer] Care Teams Inspector Precision Assembly Relationship Specialty Start Date End Date Rk Swenson MD [address] [place] [address] PCP - General Internal Medicine 08/10/23 Shena Youssef III, MD [address] [place] [address] Consulting Physician Urology 03/21/23 Barry Hopkins MD [address] [address] Consulting Physician Urology 09/12/23
[2025-05-29 08:28] LABS: Add Urine Microscopic? NO; Appearance Urine Clear (Clear); Glucose Urine UA Negative (Negative); Leukocyte Esterase Ur Negative (Negative); Nitrate Urine Negative (Negative); Specific Grav Ur 1.015 (1.010-1.020)
[2025-05-29 08:47] LABS: Hemoglobin A1C 5.0 % (<5.7)
[2025-05-29 08:55] LABS: Alanine Aminotransferase 21 U/L (6-50); Albumin Level 4.8 g/dL (3.5-5.1); Alkaline Phosphatase 44 U/L (38-126); Anion Gap 6 mmol/L (4-12); Aspartate Amino Transferase 27 U/L (17-59); Bilirubin,Total 1.4 mg/dL (0.2-1.3); Blood Urea Nitrogen 21 mg/dL (9-20); Calcium 10.0 mg/dL (8.4-10.2); Carbon Dioxide 31 mmol/L (22-30); Chloride 103 mmol/L (98-107); Cholesterol 312 mg/dL (0-200); Creatine Kinase 81 U/L (55-170); Estimated Glomerular Filt Rate > 60; Glucose 110 mg/dL (65-110); HDL Direct 87 mg/dL; Osmolality Calculated 294 mOsm/kg (285-295); Potassium 5.2 mmol/L (3.4-5.0); Sodium 140 mmol/L (137-145); Total Protein 8.5 g/dL (6.3-8.2); Triglycerides 106 mg/dL (<150)
[2025-05-29 09:10] LABS: Free T3 4.52 pg/mL (2.18-3.98)
[2025-05-29 09:13] LABS: Free T4 Free Thyroxine 0.74 ng/dL (0.78-2.19)
[2025-05-29 09:27] LABS: Thyroid Stimulating Hormone 1.230 uIU/mL (0.465-4.680)
== END 2025-05-29 08:12 | disposition home or self-care (01) ==
PROVIDERS: PCP Internal Medicine; Visit Provider Internal Medicine
DX: R73.01 Impaired fasting glucose (principal); I10 Essential (primary) hypertension; E78.2 Mixed hyperlipidemia
CPT/HCPCS: 36415; 80053; 80061; 81003; 82550; 83036; 84439; 84443; 84481; 85027